=== PATIENT | male | born 1960 | race Caucasian/White ===

== ENCOUNTER 2018-04-06 10:51 | Outpatient (REF) | payer MEDICAID, SELFPAY ==
[2018-04-06 19:16] LABS: HCT 41.6 % (40.0-50.0); HGB 13.4 g/dL (13.5-17.5); Mean Corp. HGB Concentration 32.2 g/dL (32.0-36.0); Mean Corpuscular Hemoglobin 27.4 pg (27.0-33.0); Mean Corpuscular Volume 85.1 fL (80-95); Mean Platelet Volume 12.6 fL (8.0-11.0); Platelet Count 149 x1000/uL (130-400); RBC 4.89 m/cumm (4.50-6.00); RBC Distribution Width 15.9 % (11.8-14.1); White Blood Cell Count 6.99 k/cumm (4.4-10.8)
[2018-04-06 19:25] LABS: Iron 24 ug/dL (50-175); Total Iron Binding Capacity 395 ug/dL (250-450); Transferrin Sat 6 % (20-55)
[2018-04-06 19:49] LABS: ALT 33 U/L (12-78); AST 30 U/L (15-37); Albumin 3.6 g/dL (3.4-5.0); Alkaline Phosphatase 124 U/L (46-116); Anion Gap 11.3 mmol/L (3-11); BUN 14 mg/dL (7-18); Bilirubin, Total 0.4 mg/dL (0.2-1.0); CO2 26.7 mmol/L (21.0-32.0); CREATININE 0.98 mg/dL (0.70-1.30); Calcium 8.8 mg/dL (8.5-10.1); Chloride 101 mmol/L (98-107); Ferritin 17 ng/mL (8-388); Glucose 107 mg/dL (70-100); Potassium 3.5 mmol/L (3.5-5.1); Sodium 139 mmol/L (136-145); TSH (W/Ref FT4) 2.16 uIU/mL (0.358-3.74); Total Protein 7.9 g/dL (6.4-8.2)
[2018-04-08 14:16] LABS: HCV RNA Detection Quantitative Undetected IU/mL (UNDECT)
[2018-04-09 11:32] LABS: ALT 26 U/L (7-55); ActiTest Grade A0-A1; ActiTest Interpretation no activity; ActiTest Score 0.19; Alpha-2-Macroglobulin 416 mg/dL (100 - 280); Apoliprotein A1 119 mg/dL (>=120); Bilirubin, Total 0.3 mg/dL (<=1.2); FibroTest Interpretation advanced fibrosis; FibroTest Score 0.65; FibroTest Stage F3; GGT 70 U/L (8 - 61); Haptoglobin 139 mg/dL (30 - 200)
== END 2018-04-06 11:11 ==
LOC: NCHCN 10:51
PROVIDERS: PCP Nurse Practitioner; Visit Provider Family Medicine
DX: B19.20 Unspecified viral hepatitis C without hepatic coma (principal); E83.119 Hemochromatosis, unspecified; K74.60 Unspecified cirrhosis of liver; R00.0 Tachycardia, unspecified
CPT/HCPCS: 80053; 82172; 82247; 82977; 83010; 83883; 84460; 85027; 82728; 83540; 83550; 84443; 87522

== ENCOUNTER 2018-04-13 00:26 | Outpatient (CLI) | payer MEDICAID, SELFPAY ==
--- NOTE | 2018-04-13 13:54 | DI.CTLCSR_ITS ---
SYMPTOMS/DIAGNOSIS: PERSONAL H/O NICOTINE DEPENDENCE, Z87.[address] FOR LUNG CANCER SCREENING: Comparison is made with June,. A low dose noncontrast exam was performed. The heart size is normal. Coronary artery calcifications and mild aortic calcifications are seen. No pleural or pericardial effusions are seen. Multiple large bullae are seen, greatest at the anterior left upper lobe and lingula. Large bullae are also seen in the anterior right upper lobe. On the previous scan, there was a large left apical bulla, which is no longer present. Correlation with the patient's history is recommended. There is now pleural thickening in the left upper lobe and an apparent left upper lobe mass versus scarring, measuring 5 cm AP x 3 cm cephalocaudad x 1.5 cm transverse. Scarring in the right upper lobe appears stable. No pulmonary nodules are seen. IMPRESSION: Interval decrease in size of previously noted large bulla in the left upper lobe. There is now apparent pleural thickening in the left upper lobe versus mass. A PET/CT could be considered for further evaluation. Lung-RAD Category: 4B- Suspicious Lung- RAD Management of Findings: Chest CT, PET/CT, and/or tissue sampling
== END 2018-04-13 00:46 ==
PROVIDERS: PCP Nurse Practitioner; Visit Provider Internal Medicine
DX: Z12.2 Encounter for screening for malignant neoplasm of respiratory organs (principal); Z87.891 Personal history of nicotine dependence; J43.8 Other emphysema; J92.9 Pleural plaque without asbestos
CPT/HCPCS: G0297

== ENCOUNTER 2018-06-26 01:42 | Outpatient (CLI) | payer MEDICAID, SELFPAY ==
--- NOTE | 2018-06-26 13:30 | DI.CT_ITS ---
SYMPTOMS/DIAGNOSIS: COPD, J44.9 CT SCAN OF THE CHEST: CT scan of the chest was performed without intravenous contrast material. Comparison is 04/13/18. There is atherosclerosis of the thoracic aorta, but no aneurysmal dilatation is seen. The heart size is within normal limits. No significant pericardial effusion is present. No significant thoracic adenopathy is seen on this noncontrast examination. No pleural effusion or pneumothorax is identified. The visualized thyroid gland is grossly unremarkable. Extensive bullous emphysematous changes are seen in the lungs. The scarring in the right lung apex is unchanged. The soft tissue thickening seen along the left lateral chest wall superiorly is present and is unchanged. No other pulmonary nodules are seen. No acute infiltrates are present. The tracheobronchial tree is unremarkable. Degenerative changes are seen in the spine. No aggressive osseous lesions are identified. IMPRESSION: 1. Stable pleural thickening versus soft tissue mass along the left upper lateral chest wall. 2. Severe emphysematous changes within the lungs with large bullae seen in the upper lobes.
== END 2018-06-26 02:02 ==
PROVIDERS: PCP Nurse Practitioner; Visit Provider Internal Medicine
DX: J44.9 Chronic obstructive pulmonary disease, unspecified (principal); J92.9 Pleural plaque without asbestos; J43.9 Emphysema, unspecified
CPT/HCPCS: 71250

== ENCOUNTER 2018-09-04 10:42 | Outpatient (REF) | payer MEDICAID, SELFPAY ==
[2018-09-04 13:15] LABS: HCT 42.8 % (40.0-50.0); HGB 14.6 g/dL (13.5-17.5); Mean Corp. HGB Concentration 34.1 g/dL (32.0-36.0); Mean Corpuscular Hemoglobin 29.4 pg (27.0-33.0); Mean Corpuscular Volume 86.3 fL (80-95); Mean Platelet Volume 11.9 fL (8.0-11.0); Platelet Count 178 x1000/uL (130-400); RBC 4.96 m/cumm (4.50-6.00); RBC Distribution Width 14.1 % (11.8-14.1); White Blood Cell Count 11.35 k/cumm (4.4-10.8)
[2018-09-04 14:20] LABS: Iron 72 ug/dL (50-175); Total Iron Binding Capacity 384 ug/dL (250-450); Transferrin Sat 19 % (20-55)
[2018-09-04 14:40] LABS: Cholesterol 225 mg/dL (50-200); Ferritin 32 ng/mL (8-388); HDL Cholesterol 32 mg/dL (40-60); LDL CHOLESTEROL 139 mg/dL (<100); Triglyceride 274 mg/dL (30-150)
== END 2018-09-04 11:02 ==
LOC: NCHCN 10:42
PROVIDERS: PCP Nurse Practitioner; Visit Provider Family Medicine
DX: E83.119 Hemochromatosis, unspecified (principal); K74.60 Unspecified cirrhosis of liver; Z13.220 Encounter for screening for lipoid disorders
CPT/HCPCS: 80061; 83721; 85027; 82728; 83540; 83550

== ENCOUNTER 2018-12-30 00:47 | Outpatient (CLI) | payer MEDICAID, SELFPAY ==
--- NOTE | 2018-12-30 11:08 | DI.CT_ITS ---
SYMPTOMS/DIAGNOSIS: ABNORMAL FINDINGS ON DIAGNOSTIC IMAGING OF OTHER SPECIFIED BODY STRUCTURES, R93.[address]: CT examination of the chest was performed without contrast administration. Images obtained through the upper abdomen show hepatomegaly with a nodular hepatic contour consistent with cirrhosis. Previous chest CT of 06/26/2018 showed findings of stable pleural thickening in the left upper lateral chest wall. On today's examination, the pleural thickening is more prominent, particularly on the medial aspect of the lung apex in comparison with the previous examination. No dominant rounded mass is identified. There is mild apical pleural thickening at the right lung apex, unchanged from the previous examination. Severe bullous emphysema again noted bilaterally. No intrapulmonary nodules seen. No pleural effusion. No mediastinal or hilar adenopathy. CONCLUSION: 1. Interval increase in prominence of left apical pleural thickening/mass; the pattern of involvement would raise the possibility of mesothelioma. Please correlate clinically. 2. Severe bullous emphysema again noted. 3. Hepatomegaly and nodular hepatic contour consistent with cirrhosis.
== END 2018-12-30 01:07 ==
PROVIDERS: PCP Nurse Practitioner; Visit Provider Internal Medicine
DX: R93.89 Abnormal findings on diagnostic imaging of other specified body structures (principal); R91.8 Other nonspecific abnormal finding of lung field; R16.0 Hepatomegaly, not elsewhere classified; K74.60 Unspecified cirrhosis of liver; J43.9 Emphysema, unspecified
CPT/HCPCS: 71250

== ENCOUNTER 2019-05-10 01:09 | Outpatient (CLI) | payer SELFPAY ==
--- NOTE | 2019-05-10 09:36 | DI.CT_ITS ---
EXAM: CT CHEST WO CLINICAL HISTORY: COPD, J44.9, F/U ON LT APICAL PROGRESSIVE PULMONARY FIBROSIS TECHNIQUE: Noncontrast COMPARISON: CHEST 2 VIEWS PA,LAT from 07/04/2016 CT CHEST WO from 12/30/2018 FINDINGS: Changes of centrilobular and paraseptal emphysema with multiple large bullae are again noted. There is an increased area of parenchymal scarring anteriorly at the right. There is no definite underlyin g mass. There is scarring and pleural thickening at the left apex, which appears stable. No new inf iltrates are seen. No pulmonary nodules, pleural or pericardial effusions are seen. The liver again has an enlarged cirrhotic appearance. The spleen is not fully included on the exam and appears mild ly enlarged. IMPRESSION: Mild interval increase in area of scarring seen anteriorly in the right upper lobe. The remainder of the findings appear unchanged.
== END 2019-05-10 01:29 ==
PROVIDERS: PCP Nurse Practitioner; Visit Provider Internal Medicine
DX: J44.9 Chronic obstructive pulmonary disease, unspecified (principal); J84.10 Pulmonary fibrosis, unspecified; J98.4 Other disorders of lung
CPT/HCPCS: 71250

== ENCOUNTER 2019-06-02 09:53 | Outpatient (REF) | payer SELFPAY ==
[2019-06-02 11:44] LABS: HCT 40.6 % (40.0-50.0); HGB 13.8 g/dL (13.5-17.5); Mean Corpuscular Hemoglobin 31.2 pg (27.0-33.0); Mean Corpuscular Volume 91.9 fL (80-95); Mean Platelet Volume 11.6 fL (8.0-11.0); Platelet Count 138 x1000/uL (130-400); RBC 4.42 m/cumm (4.50-6.00); White Blood Cell Count 6.33 k/cumm (4.4-10.8)
[2019-06-02 11:53] LABS: Iron 64 ug/dL (65-175); Total Iron Binding Capacity 285 ug/dL (250-450); Transferrin Sat 22 % (20-55)
[2019-06-02 12:10] LABS: ALT 38 U/L (16-63); AST 31 U/L (15-37); Albumin 3.6 g/dL (3.4-5.0); Alkaline Phosphatase 137 U/L (46-116); BUN 20 mg/dL (7-18); Bilirubin, Total 0.3 mg/dL (0.2-1.0); CREATININE 0.96 mg/dL (0.70-1.30); Calcium 8.8 mg/dL (8.5-10.1); Chloride 104 mmol/L (98-107); Ferritin 41 ng/mL (26-388); Glucose 135 mg/dL (74-106); Sodium 142 mmol/L (136-145); Total Protein 7.2 g/dL (6.4-8.2)
[2019-06-02 12:37] LABS: Uric Acid 6.4 mg/dL (3.5-7.2)
== END 2019-06-02 10:13 ==
LOC: NCHCN 09:53
PROVIDERS: PCP Nurse Practitioner; Visit Provider Family Medicine
DX: E83.119 Hemochromatosis, unspecified (principal); K74.60 Unspecified cirrhosis of liver; M10.9 Gout, unspecified
CPT/HCPCS: 80053; 85027; 82728; 83540; 83550; 84550

== ENCOUNTER 2019-11-30 10:04 | Outpatient (REF) | payer SELFPAY ==
[2019-11-30 11:44] LABS: HCT 42.2 % (40.0-50.0); Mean Corp. HGB Concentration 35.5 g/dL (32.0-36.0); Mean Corpuscular Hemoglobin 31.9 pg (27.0-33.0); Mean Corpuscular Volume 89.8 fL (80-95); Mean Platelet Volume 11.3 fL (8.0-11.0); Platelet Count 154 x1000/uL (130-400); RBC Distribution Width 13.2 % (11.8-14.1); White Blood Cell Count 7.86 k/cumm (4.4-10.8)
[2019-11-30 11:54] LABS: INR 1.1 (0.9-1.1); Prothrombin Time 10.9 sec (9.3-11.0)
[2019-11-30 11:57] LABS: ALT 156 U/L (16-63); AST 129 U/L (15-37); Albumin 4.1 g/dL (3.4-5.0); Alkaline Phosphatase 111 U/L (46-116); Anion Gap 14.2 mmol/L (3-11); BUN 13 mg/dL (7-18); Bilirubin, Total 0.8 mg/dL (0.2-1.0); CO2 23.8 mmol/L (21.0-32.0); CREATININE 1.11 mg/dL (0.70-1.30); Calcium 9.7 mg/dL (8.5-10.1); Chloride 97 mmol/L (98-107); Glucose 119 mg/dL (74-106); Potassium 3.6 mmol/L (3.5-5.1); Sodium 135 mmol/L (136-145); Total Protein 8.2 g/dL (6.4-8.2)
== END 2019-11-30 10:24 ==
LOC: NCHCN 10:04
PROVIDERS: PCP Nurse Practitioner; Visit Provider Family Medicine
DX: K74.60 Unspecified cirrhosis of liver (principal)
CPT/HCPCS: 80053; 85027; 85610

== ENCOUNTER → 2019-12-06 01:14 | Outpatient (CLI) | payer MEDICARE, SELFPAY ==
--- NOTE | 2019-12-06 | DI.US_ITS ---
EXAM: US ABDOMEN CLINICAL HISTORY: CIRRHOSIS OF LIVER,K74.60, SCREENING FOR HCC TECHNIQUE: Ultrasound performed using standard protocol. COMPARISON: US ABDOMEN ULTRASOUND (P) from 04/07/2017 FINDINGS: The liver is enlarged measuring 18.2 cm in length. The echotexture is coarse. There is also increa sed echogenicity consistent with fatty infiltration. No focal liver lesions or biliary dilatation is seen. The gallbladder is unremarkable, without evidence of stones or wall thickening. There is no ascites. The spleen is mildly enlarged at 13.6 cm. The kidneys are unremarkable. The aorta is norm al in diameter. IMPRESSION: Enlarged fatty liver with coarse echotexture. No evidence of mass. DATA REPOSITORY:
== END ==
PROVIDERS: PCP Family Medicine; Visit Provider Family Medicine
DX: K74.69 Other cirrhosis of liver (principal); K76.0 Fatty (change of) liver, not elsewhere classified; R16.2 Hepatomegaly with splenomegaly, not elsewhere classified
CPT/HCPCS: 71250; 76700

== ENCOUNTER 2019-12-06 01:22 | Outpatient (CLI) | payer SELFPAY ==
--- NOTE | 2019-12-06 07:51 | DI.CT_ITS ---
EXAM: CT CHEST WO CLINICAL HISTORY: CHRONIC OBSTRUCTIVE LUNG DISEASE,J44.9, F/U RT APICAL DENSITY TECHNIQUE: Imaging Protocol: Axial computed tomography images with coronal and sagittal reformatted images were created and reviewed CONTRAST MATERIAL: Intravenous: Omnipaque 350 Contrast volume:structured data in ml. COMPARISON: CT CT CHEST W/ HRCT from 07/11/[address] CHEST LUNG CANCER SCREEN from 04/13/[address] CHEST WO from 05/10/2019 FINDINGS: Tracheobronchial tree: Patent where visualized. Mediastinum and Leanna: No dominant adenopathy or fluid collection. Pulmonary parenchyma: No consolidation or dominant measurable mass. Stable emphysematous changes and large bulla. Biapical scarring. The scarring in the right upper lobe appears less prominent when co mpared with the previous exam. No mass is visible. Left apical scarring appears stable.. Pleura: No effusion or pneumothorax. Heart: The heart is not dilated. Dense coronary artery calcifications are seen. Aorta: Thoracic aorta non-dilated. Mild calcification. Upper abdomen: Enlarged fatty liver. Lymph nodes: Within normal limits. Bones: Degenerative changes in the spine.. IMPRESSION: Interval decrease in right upper lobe scarring when compared with the previous exam. No mass is visi ble. Severe emphysematous changes with large bulla. RADIATION DOSE DELIVERED: 510.31mGy.cm Total DLP DATA REPOSITORY: All CT scans at this facility are submitted to the National Radiology Data Registry (NRDR) Dose Index Registry (DIR) with the [employer] ([employer]). RADIATION OPTIMIZATION: All CT scans at this facility use at least one of these dose optimization te chniques: automated exposure control; mA and/or kV adjustment per patient size (includes targeted exa ms where dose is matched to clinical indication); or iterative reconstruction.
== END 2019-12-06 01:42 ==
PROVIDERS: PCP Family Medicine; Visit Provider Internal Medicine
DX: J44.9 Chronic obstructive pulmonary disease, unspecified (principal); K76.0 Fatty (change of) liver, not elsewhere classified; J43.8 Other emphysema
CPT/HCPCS: 71250

== ENCOUNTER → 2020-06-02 01:40 | Outpatient (CLI) | payer MEDICARE, SELFPAY ==
--- NOTE | 2020-06-02 | DI.US_ITS ---
EXAM: US ABDOMEN CLINICAL HISTORY: HCC SCREENING, CIRRHOSIS OF LIVER, K74.60 TECHNIQUE: Ultrasound abdomen performed using standard protocol. COMPARISON: US US ABDOMEN from 12/06/[address] CHEST WO from 12/06/2019 FINDINGS: LIVER: The liver is enlarged to 17.5 cm in length. There is diffuse increased echogenicity consisten t with fatty infiltration. The liver surface is nodular. No focal liver lesions are seen.. GALLBLADDER: No evidence of cholelithiasis. No evidence of wall thickening. No pericholecystic fluid identified. HACKETT'S SIGN: Negative. BILIARY SYSTEM: No intrahepatic or extrahepatic biliary ductal dilation. KIDNEYS: Kidneys are symmetric in size. No evidence of renal calculi. No evidence of hydronephrosis. No renal mass or cyst identified. PANCREAS: Normal where visualized. SPLEEN: Not enlarged. ABDOMINAL AORTA AND IVC: Visualized portions normal caliber. ASCITES: None seen. IMPRESSION: Enlarged nodular liver. No focal liver mass. Normal gallbladder. DATA REPOSITORY:
== END ==
PROVIDERS: PCP Family Medicine; Visit Provider Family Medicine
DX: K74.69 Other cirrhosis of liver (principal)
CPT/HCPCS: 76700

== ENCOUNTER 2021-04-15 16:16 | Emergency (ER) | payer OTHER, SELFPAY ==
[2021-04-15] VITALS (29 sets, daily range): BP systolic 101–138; BP diastolic 69–121; PULSE 80–110; RESP 1–28; TEMP 36.4; O2SAT 76–100
--- NOTE | 2021-04-15 16:15 | RT.EKG_ITS ---
APPROVED REPORT Exam: Resting ECG Reason for Exam: od Patient Location: E HR:106 bpm ECG Measurements Heart Rate 106 AXIS LA 151 P 87 QRSd 89 QRS 79 QT 320 T 53 QTc 426 Conclusion Sinus tachycardia...rate> 99. Sinus. No STEMI. I have reviewed and interpreted ECG and agree with software generated interpretation.
--- NOTE | 2021-04-15 16:15 | DI.RAD_ITS ---
Exam(s) XR CHEST 2V PA LATERAL EXAM: XR CHEST 2V PA LATERAL CLINICAL HISTORY: s/p found down, unresponsive, r/o acute disease. TECHNIQUE: 2D digital imaging was performed. COMPARISON: CR CHEST 2 VIEWS PA,LAT from 07/04/2016 FINDINGS: Heart size is normal. The mediastinum is not widened. Severe emphysematous bullous changes are again noted. However, there is now a fluid level within a l arge bulla in the lingular segment of the left lung, consistent with most probable infectious etiolog y superimposed upon severe emphysematous bullous disease. No free layering pleural fluid. IMPRESSION: Fluid level within large left lung bulla as described above. Most probably infectious. Recommend fo llow-up CT scan. DATA REPOSITORY: RADIATION DOSE DELIVERED:
[2021-04-15] MEDS: Normal Saline 1,000 ML 1000 ML IV (16:35)
[2021-04-15 16:36] LABS: Abs Immature Grans 0.77 10^3/uL (0.0-0.06); Absolute Basophil Count 0.12 10^3/uL (0.0-0.2); Absolute Eosinophil Count 0.32 10^3/uL (0.0-0.7); Basophils % 0.8; Eosinophils % 2.1; HCT 51.8 % (40.0-50.0); HGB 16.4 g/dL (13.5-17.5); Lymphocytes % 40.2; MCH 31.7 pg (27.0-33.0); MCHC 31.7 % (32.0-36.0); MCV 100.2 fL (80-95); MPV 10.5 fL (8.0-11.0); Monocytes % 2.9; Nucleated RBC 0 %; Platelet Count 285 10^3/uL (130-400); RBC 5.17 10^6/uL (4.36-5.78); RDW 12.7 % (11.8-14.1); RDW-SD 47.6 fL; WBC 15.39 10^3/uL (4.4-10.8)
[2021-04-15 16:39] LABS: Absolute Lymphocyte Count 6.19 10^3/uL (1.2-3.4); Absolute Monocyte Count 0.45 10^3/uL (0.1-0.8); Absolute Neutrophil Count 7.54 10^3/uL (1.2-6.7)
[2021-04-15] MEDS: LORazepam 2 MG/ML VIAL 0.5 MG IVP (16:39)
--- NOTE | 2021-04-15 16:40 | ED.GENADUL_ITS ---
Discharge Plan Disposition Patient Disposition: AGAINST MEDICAL ADVICE Condition: Serious Discharge Details Clinical Impression: Overdose, Hyperglycemia, Hyperkalemia, Pneumonia, Transaminitis Primary Care Provider: Gerardo Ramos ED Provider: Su Boateng Home Meds and New Rx's Prescriptions: New levofloxacin 750 mg tablet 750 mg PO DAILY 5 Days Qty: 5 RF: 0 Discharge Instructions Instructions: Narcotic Safety (ED), Hyperkalemia (ED), Nondiabetic Hyperglycemia (ED), Opioid Safety (ED), Pneumonia (ED), Adult Overdose (ED) Additional Instructions: You are leaving the hospital AGAINST MEDICAL ADVICE. Your blood work showed evidence that your blood sugar is elevated and may be a sign of diabetes. Your chest x-ray also showed evidence of a possible pneumonia. It is recommended that you stay in the hospital for continued monitoring overnight to monitor your breathing after an overdose, to monitor your blood sugar and to give you intravenous antibiotics for your pneumonia. There is a risk of and disability due to leaving the hospital as a result potentially of incomplete treatment, missed diagnoses or worsening condition, etc. A prescription for antibiotics has been sent electronically to your pharmacy. Take this as directed until finished. You are also being sent home with Narcan to to use in case of opiate overdose. Call your primary care doctor tomorrow to schedule follow-up appointment for reevaluation and for recheck of your blood sugar to determine if you officially have diabetes or any diabetes medication. Return immediately to the emergency department if you develop any worsening or new concerning symptoms. Discharge Data Discharge Date/Time-TO BE ENTERED AT DEPARTURE: 04/15/21 19:02 Discharge Physician: Su Boateng Medical Decision Making 60-year-old male with history of COPD, hypertension, history of opiate abuse with previous history of overdose presents from home for potential opiate overdose, found unresponsive now alert after 5 rounds of Narcan on scene. Heart rate 110s, blood pressure within normal limits. Oxygen saturation 98% on nasal cannula. Patient is drowsy but awakens to voice and is able to answer questions. He states he is not sure what he did today but his girlfriend states he has a history of opiate abuse and stated this episode is similar to that. EKG notes a rate of 106, sinus, no STEMI, nondiagnostic. No evidence of trauma or focal deficits on exam. Patient is shivering and restless throughout evaluation but appears nontoxic. Will give a dose of benzodiazepines, fluids, obtain screening labs, CT head, chest x-ray and continue to monitor. Labs and imaging reviewed. White blood cell count 15. Hemoglobin 16. Potassium 5.3. Bicarb 23. Anion gap 13.5. BUN 19. Creatinine 1.8. Glucose 354. AST 138. ALT 127. Alk phos 129. Troponin negative. Negative alcohol, acetaminophen and salicylates. After return from radiology patient is much more awake and alert, oriented x3. Appears much more comfortable and relaxed. CXR notes: IMPRESSION: Bullous disease at the lung apices. Large 7.8 cm x 8.8 cm x 11.0 cm pulmonary bulla in the left mid lung zone abutting the mediastinum with an air-fluid level suspicious for a superimposed pulmonary infection. Clinical correlation is recommended. CT head and cervical spine notes: IMPRESSION: No acute intracranial findings on this noninfused CT scan of the brain. No evidence of acute cervical spine fracture, malalignment, nor acute compromise of the cervical spinal canal. 7 units of insulin ordered for hyperkalemia and hyperglycemia. Albuterol and sodium bicarbonate ordered for hyperkalemia. We will continue IV fluid hydration. Will start antibiotics for potential aspiration pneumonia, IV Levaquin and Flagyl ordered. Case discussed with hospitalist who came to evaluate patient. Patient is refusing to stay. Despite our efforts, the patient has decided to leave against medical advice. He has a normal mental status and full decisional capacity. The patient understands his condition and the risks of leaving AMA, including BUT NOT LIMITED TO permanent disability, , etc., and has had an opportunity to ask questions about his medical condition. The patient has been informed that he may return for care at any time, and has been referred to his local medical physician for follow up MARIA T. He was given a dose of p.o. Levaquin here and prescription sent electronically to his pharmacy. He was placed on care management list to help arrange for a follow-up appointment with his PCP tomorrow for reevaluation, recheck of his glucose to determine if he needs diabetic medication. Usual and customary return precautions given prior to leaving against medical advice. Medical Records Medical records reviewed: Yes I reviewed the patient's medical records. Imaging Data Radiologic Study: Radiologist's impression: XR Chest Exam date and time: 04/15/2021 4:32 PM Age: 60 years old Clinical indication: Other: S/P found down, unresponsive. R/O acute disease TECHNIQUE: Imaging protocol: XR of the chest. Views: 2 views. COMPARISON: CT CHEST WO 12/06/2019 7:49 AM FINDINGS: Lungs: There is bullous change at the pulmonary apices. There is a large 7.8 cm x 8.8 cm x 11.0 cm pulmonary bulla projecting in the medial left hemithorax with an air-fluid level, partially obscuring the heart. No pulmonary consolidation is seen. Pleural spaces: No pleural effusion or pneumothorax is demonstrated. Apical pleural thickening is noted bilaterally, more prominent on the right. Heart/Mediastinum: The heart size is normal. Bones/joints: The visualized bony structures appear grossly intact, as seen. IMPRESSION: Bullous disease at the lung apices. Large 7.8 cm x 8.8 cm x 11.0 cm pulmonary bulla in the left mid lung zone abutting the mediastinum with an air-fluid level suspicious for a superimposed pulmonary infection. Clinical correlation is recommended. CT HEAD CERVICAL SPINE WO CLINICAL HISTORY: unresponsive, s/p found down. TECHNIQUE: Imaging Protocol: Axial computed tomography images with coronal and sagittal reformatted images were created and reviewed COMPARISON: No exams were available for comparison FINDINGS: BRAIN: There are no skull fractures nor fluid in the visualized paranasal sinuses. Mild mucosal thickening is noted in left maxillary sinus. Chronic nasal bone fracture and deviation of the nasal septum noted. There is no evidence of intracranial hemorrhage, mass effect, or shift of midline structures. There are no extra-axial fluid collections. The ventricles are not enlarged or shifted and there is no blood within the ventricular system nor within the basal cisterns. CERVICAL SPINE: There is no evidence of fracture nor listhesis. No significant prevertebral soft tissue swelling. Multilevel degenerative changes in the facet joints. There is also fusion of the C3-4 left facet joints There is no significant facet joint malalignment. No significant osseous lesions evident. IMPRESSION: No acute intracranial findings on this noninfused CT scan of the brain. No evidence of acute cervical spine fracture, malalignment, nor acute compromise of the cervical spinal canal. Lab Data Lab results reviewed: Yes I reviewed the patient's lab results. Labs: 04/15/21 18:15 Blood Blood Culture - Pending 04/15/21 18:15 Blood Blood Culture - Pending Laboratory Tests Range/Units 04/15/21 04/15/21 04/15/21 16:20 16:20 16:20 WBC (4.4-10.8) 10^3/uL 15.39 H RBC (4.36-5.78) 10^6/uL 5.17 Hgb (13.5-17.5) g/dL 16.4 Hct (40.0-50.0) % 51.8 H MCV (80-95) fL 100.2 H MCH (27.0-33.0) pg 31.7 MCHC (32.0-36.0) % 31.7 L RDW (11.8-14.1) % 12.7 Plt Count (130-400) 10^3/uL 285 MPV (8.0-11.0) fL 10.5 Immature Gran % 5.0 Neutrophils % 49.0 Lymphocytes % 40.2 Monocytes % 2.9 Eosinophils % 2.1 Basophils % 0.8 Nucleated RBC % % 0 Absolute Neutrophils (1.2-6.7) 10^3/uL 7.54 H Absolute Lymphocytes (1.2-3.4) 10^3/uL 6.19 H Absolute Monocytes (0.1-0.8) 10^3/uL 0.45 Absolute Eosinophils (0.0-0.7) 10^3/uL 0.32 Absolute Basophils (0.0-0.2) 10^3/uL 0.12 RBC Morphology Normal VBG pH (7.31-7.41) VBG pCO2 (41-51) mmHg VBG pO2 mmHg VBG HCO3 (23-28) mmol/L VBG Total CO2 (24-29) mmol/L VBG O2 Saturation % VBG Base Excess (-2-3) mmol/L Sodium (136-145) mmol/L 135 L Potassium (3.5-5.1) mmol/L 5.3 H Chloride (98-107) mmol/L 98 Carbon Dioxide (21.0-32.0) mmol/L 23.5 Anion Gap (3-11) mmol/L 13.5 H BUN (7-18) mg/dL 19 H Creatinine (0.70-1.30) mg/dL 1.8 H Estimated GFR/1.73 m2 (mL/min/1.73m2) 38.81 Glucose (74-106) mg/dL 354 H Calcium (8.5-10.1) mg/dL 9.2 Magnesium (1.8-2.4) mg/dL 2.4 Total Bilirubin (0.2-1.0) mg/dL 0.6 AST (15-37) U/L 138 H ALT (16-63) U/L 127 H Alkaline Phosphatase (46-116) U/L 129 H Troponin I (<0.06) ng/mL < 0.05 Total Protein (6.4-8.2) g/dL 8.9 H Albumin (3.4-5.0) g/dL 4.0 Salicylates (<2.8) mg/dL < 2.8 Acetaminophen (10-30) ug/mL < 2 Ethyl Alcohol (<10) mg/dL < 3.0 Range/Units 04/15/21 18:00 WBC (4.4-10.8) 10^3/uL RBC (4.36-5.78) 10^6/uL Hgb (13.5-17.5) g/dL Hct (40.0-50.0) % MCV (80-95) fL MCH (27.0-33.0) pg MCHC (32.0-36.0) % RDW (11.8-14.1) % Plt Count (130-400) 10^3/uL MPV (8.0-11.0) fL Immature Gran % Neutrophils % Lymphocytes % Monocytes % Eosinophils % Basophils % Nucleated RBC % % Absolute Neutrophils (1.2-6.7) 10^3/uL Absolute Lymphocytes (1.2-3.4) 10^3/uL Absolute Monocytes (0.1-0.8) 10^3/uL Absolute Eosinophils (0.0-0.7) 10^3/uL Absolute Basophils (0.0-0.2) 10^3/uL RBC Morphology VBG pH (7.31-7.41) 7.30 L VBG pCO2 (41-51) mmHg 58 H VBG pO2 mmHg 23 VBG HCO3 (23-28) mmol/L 28 VBG Total CO2 (24-29) mmol/L 26 VBG O2 Saturation % 39 VBG Base Excess (-2-3) mmol/L 2 Sodium (136-145) mmol/L Potassium (3.5-5.1) mmol/L Chloride (98-107) mmol/L Carbon Dioxide (21.0-32.0) mmol/L Anion Gap (3-11) mmol/L BUN (7-18) mg/dL Creatinine (0.70-1.30) mg/dL Estimated GFR/1.73 m2 (mL/min/1.73m2) Glucose (74-106) mg/dL Calcium (8.5-10.1) mg/dL Magnesium (1.8-2.4) mg/dL Total Bilirubin (0.2-1.0) mg/dL AST (15-37) U/L ALT (16-63) U/L Alkaline Phosphatase (46-116) U/L Troponin I (<0.06) ng/mL Total Protein (6.4-8.2) g/dL Albumin (3.4-5.0) g/dL Salicylates (<2.8) mg/dL Acetaminophen (10-30) ug/mL Ethyl Alcohol (<10) mg/dL ECG Data Attestation: I personally reviewed and interpreted this ECG (s) as follows: Interpretation: Rate of 106, sinus, no acute ST elevation or depression. TN 151. QRS 89. QTc 426 HPI General Mode of arrival: EMS . Date/Time Provider Initiated Documentation: 04/15/21 16:16 . Limitations to Documentation: altered mental status . Information obtained by: patient, family and EMS . HPI Narrative: Patient is a 60-year-old male with a history of COPD, former narcotic opiate abuse, tobacco smoker who presents from home as an unresponsive with CPR in progress per EMS. Upon EMS arrival, family had given him 5 Narcan and he was now alert and talking. Per patient's girlfriend Lizet, she states she heard a loud thump and checked on patient he was sitting on the toilet slumped over. She states she appeared to be breathing. She states his son and [id number] lowered him to the ground and he appeared to have slow breathing and they started CPR and gave him 5 intranasal Narcan and that he became responsive and talking. EMS placed an IV but no additional medications were given. Patient's daughter Lizet states that patient does have a history of snorting opiates and history of overdoses states this 1 was the worst . She states he was acting at his normal baseline prior to episode today. Denies any recent fever, falls or injury today. Related Data Home Medications Medication Instructions Recorded Confirmed levofloxacin 750 mg PO DAILY 5 Days #5 tab 04/15/21 Previous Rx's Medication Instructions Recorded levofloxacin 750 mg PO DAILY 5 Days #5 tab 04/15/21 Allergies Allergy/AdvReac Type Severity Reaction Status Date / Time Penicillins AdvReac Intermediate Nausea Unverified 06/07/19 07:29 codeine [Codeine] AdvReac Nausea Unverified 06/07/19 07:29 General Stated Complaint: OD/Poison BEVERLY: 2 Review of Systems All systems reviewed & are unremarkable except as noted in HPI and below Constitutional Constitutional: Reports as per HPI, Denies chills, Denies fever(s) and Reports other (feels freezing) Eyes Eyes: Denies blurry vision ENT Ears, Nose, Mouth, and Throat: Denies dizziness, Denies sore throat and Denies throat swelling Cardiovascular Cardiovascular: Denies chest pain and Denies dyspnea Respiratory Respiratory: Denies cough and Denies dyspnea Gastrointestinal Gastrointestinal: Denies abdominal pain, Denies diarrhea and Denies vomiting Genitourinary Genitourinary: Denies hematuria and Denies dysuria Musculoskeletal Musculoskeletal: Denies back pain and Denies numbness Integumentary/Breasts Skin/Breast: Denies lesions and Denies rash Neurologic Neurologic: Denies dizziness, Denies localized weakness and Denies numbness Allergic/Immunologic Allergic/Immunologic: Denies throat swelling [facility] Medical History (Updated 04/15/21 @ 18:44 by Su Boateng DO) Chronic low back pain Chronic obstructive lung disease Essential hypertension Surgical History (Updated 04/15/21 @ 16:47 by Su Boateng DO) Acromioplasty History of surgery on wrist Family History (System 06/07/19 @ 07:29 by Naty Miranda) Mother No problems noted. Father No problems noted. Social History (System 06/07/19 @ 07:29 by Naty Miranda) Smoking/Tobacco Use Status: Never Smoking risk assessment performed?: Yes Alcohol Intake: current Alcohol Intake frequency: a few times a week Alcohol type: beer Drug use: Daily Substance use type: marijuana Do you feel safe at home: Yes Do you feel safe in your relationship?: Yes Exam Const General: cooperative and no acute distress HENGA Head: normal to inspection Face and sinus: normal facial exam Eyes General: appearance normal, both eyes and all related structures Pupils: PERRL EOM: EOM intact bilaterally Neck Neck: normal visual inspection and No submandibular swelling Lymphatic: no lymphadenopathy noted Chest Chest: normal inspection of the chest and no tenderness Resp Effort & Inspection: normal respiratory effort and able to speak in complete sentences Auscultation: clear to auscultation bilaterally Cardio Rate: regular rate Rhythm: regular rhythm GI Inspection: normal to inspection Palpation: soft, not firm, not rigid and nontender Auscultation: normal bowel sounds Back/Spine/Pelvis Thoracic/Lumbar Spine: thoracic and lumbar spine normal to inspection Pelvis: no pain with anterior-posterior compression Skin General skin exam: no rashes or lesions noted Neuro General: patient alert, patient awake and patient oriented x3 Cognition: normal cognition Speech: speech normal Motor: muscle tone normal throughout Sensory Exam: no sensory deficits noted Extrem General: normal to inspection, full ROM, capillary refill normal, no calf tenderness bilaterally and no edema Psych Appearance: grossly normal Mental Status: mental status grossly normal Speech and Movement: speech and movement normal Affect: normal affect Course Vital Signs Vital signs: Vital Signs Temperature 97.5 F L 04/15/21 16:19 Pulse 110 H 04/15/21 16:19 Respiratory Rate 26 H 04/15/21 16:19 Blood Pressure 127/90 04/15/21 16:19 Pulse Oximetry 98 04/15/21 16:19 Temperature 97.5 F L 04/15/21 16:19 Temperature Source Tympanic 04/15/21 16:19 Pulse 110 H 04/15/21 16:19 Respiratory Rate 26 H 04/15/21 16:19 Blood Pressure 127/90 04/15/21 16:19 Blood Pressure Position Supine 04/15/21 16:19 Pulse Oximetry 98 04/15/21 16:19 Oxygen Delivery Method Room Air 04/15/21 16:19 Oxygen Flow Rate 0 04/15/21 16:19 Pain Level 0 04/15/21 16:19 Lab/Test Results Lab/Test Results: Laboratory Tests Range/Units 04/15/21 16:20 WBC (4.4-10.8) 10^3/uL 15.39 H RBC (4.36-5.78) 10^6/uL 5.17 Hgb (13.5-17.5) g/dL 16.4 Hct (40.0-50.0) % 51.8 H MCV (80-95) fL 100.2 H MCH (27.0-33.0) pg 31.7 MCHC (32.0-36.0) % 31.7 L RDW (11.8-14.1) % 12.7 Plt Count (130-400) 10^3/uL 285 MPV (8.0-11.0) fL 10.5
[2021-04-15 16:51] LABS: ALT 127 U/L (16-63); AST 138 U/L (15-37); Alkaline Phosphatase 129 U/L (46-116); Anion Gap 13.5 mmol/L (3-11); BUN 19 mg/dL (7-18); Bilirubin, Total 0.6 mg/dL (0.2-1.0); CO2 23.5 mmol/L (21.0-32.0); CREATININE 1.8 mg/dL (0.70-1.30); Calcium 9.2 mg/dL (8.5-10.1); Chloride 98 mmol/L (98-107); Estimated GFR 38.81 (mL/min/1.73m2); Glucose 354 mg/dL (74-106); Magnesium 2.4 mg/dL (1.8-2.4); Potassium 5.3 mmol/L (3.5-5.1); Sodium 135 mmol/L (136-145); Total Protein 8.9 g/dL (6.4-8.2)
[2021-04-15 16:56] LABS: Troponin I < 0.05 ng/mL (<0.06)
--- NOTE | 2021-04-15 16:59 | DI.CT_ITS ---
Exam(s) CT HEAD CERVICAL SPINE WO EXAM: CT HEAD CERVICAL SPINE WO CLINICAL HISTORY: unresponsive, s/p found down. TECHNIQUE: Imaging Protocol: Axial computed tomography images with coronal and sagittal reformatted images were created and reviewed COMPARISON: No exams were available for comparison FINDINGS: BRAIN: There are no skull fractures nor fluid in the visualized paranasal sinuses. Mild mucosal thickening is noted in left maxillary sinus. Chronic nasal bone fracture and deviation of the nasal septum note d. There is no evidence of intracranial hemorrhage, mass effect, or shift of midline structures. There are no extra-axial fluid collections. The ventricles are not enlarged or shifted and there is no blo od within the ventricular system nor within the basal cisterns. CERVICAL SPINE: There is no evidence of fracture nor listhesis. No significant prevertebral soft tissue swelling. Multilevel degenerative changes in the facet joints. There is also fusion of the C3-4 left facet catalina nts There is no significant facet joint malalignment. No significant osseous lesions evident. IMPRESSION: No acute intracranial findings on this noninfused CT scan of the brain. No evidence of acute cervical spine fracture, malalignment, nor acute compromise of the cervical spin al canal. RADIATION DOSE DELIVERED: 1,468.46mGy.cm Total DLP DATA REPOSITORY: All CT scans at this facility are submitted to the National Radiology Data Registry (NRDR) Dose Index Registry (DIR) with the [employer] ([employer]). RADIATION OPTIMIZATION: All CT scans at this facility use at least one of these dose optimization te chniques: automated exposure control; mA and/or kV adjustment per patient size (includes targeted exa ms where dose is matched to clinical indication); or iterative reconstruction.
[2021-04-15 17:03] LABS: Diff Comment Agrees w/ Instrument; RBC Morphology Normal
[2021-04-15 17:05] LABS: Salicylate < 2.8 mg/dL (<2.8)
[2021-04-15 17:06] LABS: ETHANOL BLOOD < 3.0 mg/dL (<10)
[2021-04-15 17:07] LABS: Acetaminophen < 2 ug/mL (10-30)
[2021-04-15] MEDS: Albuterol 2.5 MG/3 ML INH SOLN VIAL 5 MG UPD (17:26)
[2021-04-15] MEDS: Sodium Bicarbonate 50 MEQ/50 ML SYR IVP (17:26)
[2021-04-15] MEDS: Insulin REGULAR-Human 100 UNITS/ML UNIT 7 UNITS SC (17:27)
--- NOTE | 2021-04-15 17:42 | DI.VRAD_ITS ---
PROCEDURE INFORMATION: Exam: CT Head Without Contrast Exam date and time: 04/15/2021 4:32 PM Age: 60 years old Clinical indication: Injury or trauma; Unconscious; Injury details: Unresponsive, S/P found down TECHNIQUE: Imaging protocol: Computed tomography of the head without contrast. Radiation optimization: All CT scans at this facility use at least one of these dose optimization techniques: automated exposure control; mA and/or kV adjustment per patient size (includes targeted exams where dose is matched to clinical indication); or iterative reconstruction. COMPARISON: No relevant prior studies available. FINDINGS: Brain: No acute intracranial hemorrhage, mass-effect, midline shift, or extra-axial collection is seen. The craft white matter differentiation appears preserved. Cerebral ventricles: The ventricular system and basilar cisterns appear appropriate in size and configuration. Paranasal sinuses: The paranasal sinuses appear well aerated. No air-fluid levels are seen. Mastoid air cells: The mastoid air cells appear well-aerated. Auditory system: The middle ear cavities appear clear. Orbital cavity: The globes and intraorbital structures appear grossly intact. Vasculature: There is atherosclerotic calcification within the intracranial portion of the internal carotid arteries bilaterally. Bones/joints: There is gross deformity of the nasal bones and of the nasal septum. Old trauma is suspected. Clinical correlation is recommended. Soft tissues: No gross focal scalp hematoma is seen. Dental: The teeth are only partially visualized. There is poor dentition with multiple dental cavities and periapical lucencies in the mandible and maxilla suspicious for apical periodontitis and/or periapical abscesses. Follow-up with a dentist is recommended IMPRESSION: 1. No acute intracranial hemorrhage or depressed skull fracture. 2. Teeth only partially visualized. Poor dentition. Multiple dental cavities and periapical lucencies in the mandible and maxilla suspicious for apical periodontitis and/or periapical abscesses. Follow-up with a dentist is recommended. PROCEDURE INFORMATION: Exam: CT Cervical Spine Without Contrast Exam date and time: 04/15/2021 4:32 PM Age: 60 years old Clinical indication: Injury or trauma; Unconscious; Injury details: Unresponsive, S/P found down TECHNIQUE: Imaging protocol: Computed tomography images of the cervical spine without contrast. Radiation optimization: All CT scans at this facility use at least one of these dose optimization techniques: automated exposure control; mA and/or kV adjustment per patient size (includes targeted exams where dose is matched to clinical indication); or iterative reconstruction. COMPARISON: No relevant prior studies available. FINDINGS: Vertebrae: No acute cervical fracture or malalignment is seen. C2-C3: Disc height preserved. No significant cervical stenosis or foraminal narrowing. Moderate right-sided facet arthrosis. C3-C4: Disc height preserved. Osteophytic ridging on the left. Complete fusion of the left facet joint. No significant cervical stenosis. No significant right-sided foraminal narrowing. Severe left-sided foraminal narrowing. C4-C5: Disc height preserved. Severe right-sided facet arthrosis. Posterior osteophytic ridging with uncovertebral hypertrophy on the right. No significant cervical stenosis. Mild left and moderate-severe right-sided foraminal narrowing. C5-C6: Disc height preserved. Anterior osteophytes. Posterior osteophytic ridging with bilateral uncovertebral hypertrophy. Moderate bilateral facet arthrosis. Small broad-based posterior disc bulge abutting and deforming the thecal sac. Moderate bilateral foraminal narrowing. C6-C7: Disc height preserved. Moderate right-sided facet arthrosis. No significant cervical stenosis or right-sided foraminal narrowing. Mild left-sided foraminal narrowing. C7-T1: No significant cervical stenosis or foraminal narrowing. Soft tissues: Within the limits of the exam, no gross soft tissue fluid collection is seen in the neck. Thyroid: The thyroid gland appears normal in size. Vasculature: There is atherosclerotic calcification at the carotid bifurcations bilaterally. Lungs: There is extensive emphysema with bullous change at the lung apices. Spiculated opacity at the right lung apex with calcification probably represents scarring from a prior infection. IMPRESSION: No acute cervical fracture or malalignment is seen. Dictated and Authenticated by: Zan Valdivia MD. Ordering:NAVJOT Blue MD
--- NOTE | 2021-04-15 17:48 | DI.VRAD_ITS ---
PROCEDURE INFORMATION: Exam: XR Chest Exam date and time: 04/15/2021 4:32 PM Age: 60 years old Clinical indication: Other: S/P found down, unresponsive. R/O acute disease TECHNIQUE: Imaging protocol: XR of the chest. Views: 2 views. COMPARISON: CT CHEST WO 12/06/2019 7:49 AM FINDINGS: Lungs: There is bullous change at the pulmonary apices. There is a large 7.8 cm x 8.8 cm x 11.0 cm pulmonary bulla projecting in the medial left hemithorax with an air-fluid level, partially obscuring the heart. No pulmonary consolidation is seen. Pleural spaces: No pleural effusion or pneumothorax is demonstrated. Apical pleural thickening is noted bilaterally, more prominent on the right. Heart/Mediastinum: The heart size is normal. Bones/joints: The visualized bony structures appear grossly intact, as seen. IMPRESSION: Bullous disease at the lung apices. Large 7.8 cm x 8.8 cm x 11.0 cm pulmonary bulla in the left mid lung zone abutting the mediastinum with an air-fluid level suspicious for a superimposed pulmonary infection. Clinical correlation is recommended. Dictated and Authenticated by: Zan Valdivia MD. Ordering:NAVJOT Blue MD
[2021-04-15] MEDS: Normal Saline 1,000 ML 125 ML IV (17:59)
[2021-04-15 18:07] LABS: BE (Venous) 2 mmol/L (-2-3); HCO3 (Venous) 28 mmol/L (23-28); O2 Sat (Venous) 39 %; TCO2 (Venous) 26 mmol/L (24-29); pCO2 (Venous) 58 mmHg (41-51); pO2 (Venous) 23 mmHg
[2021-04-15] MEDS: levoFLOXacin 500 MG, levoFLOXacin 250 MG 750 MG PO (18:49)
--- NOTE | 2021-04-15 19:07 | NUR.NOTE ---
Referral faxed to [facility] Dr. Ramos to f/u 04/16/21 if at all possible for pneumonia, elevated blood sugar. Nursing Note:
== END 2021-04-15 19:02 | disposition left against medical advice (07) ==
PROVIDERS: Emergency Provider Physician Assistant; PCP Family Medicine
DX: T50.901A Poisoning by unspecified drugs, medicaments and biological substances, accidental (unintentional), initial encounter (principal); R73.9 Hyperglycemia, unspecified; E87.5 Hyperkalemia; J18.9 Pneumonia, unspecified organism; R74.01 Elevation of levels of liver transaminase levels; Z53.29 Procedure and treatment not carried out because of patient's decision for other reasons
CPT/HCPCS: 36415; 36416; 80053; 80307; 82805; 82962; 87040; 93005; 94640; 96361; 96372; 96374; 96375; 99285; 70450; 71046; 72125; 80320; 80329; 81003; 83605; 83735; 84484; 85025; 93010; 99284; J2060; J7613

== ENCOUNTER 2021-04-19 16:16 | Outpatient (REF) | payer OTHER, MEDICAID, SELFPAY ==
[2021-04-19 15:19] LABS: HCT 44.4 % (40.0-50.0); HGB 15.1 g/dL (13.5-17.5); MCV 94.1 fL (80-95); MPV 11.2 fL (8.0-11.0); RBC 4.72 10^6/uL (4.36-5.78); RDW 12.4 % (11.8-14.1); RDW-SD 43.1 fL; WBC 9.03 10^3/uL (4.4-10.8)
[2021-04-19 15:22] LABS: Platelet Count 175 10^3/uL (130-400)
[2021-04-19 15:56] LABS: Hemoglobin A1C 5.6 % (<5.7)
[2021-04-19 16:09] LABS: ALT 133 U/L (16-63); AST 49 U/L (15-37); Albumin 4.6 g/dL (3.4-5.0); Alkaline Phosphatase 102 U/L (46-116); Anion Gap 9.7 mmol/L (3-11); BUN 18 mg/dL (7-18); Bilirubin, Total 0.7 mg/dL (0.2-1.0); CO2 28.3 mmol/L (21.0-32.0); Calcium 9.7 mg/dL (8.5-10.1); Chloride 101 mmol/L (98-107); Ferritin 214 ng/mL (26-388); Glucose 107 mg/dL (74-106); Potassium 3.8 mmol/L (3.5-5.1); Sodium 139 mmol/L (136-145); Total Protein 8.8 g/dL (6.4-8.2)
[2021-04-19 16:36] LABS: Iron 98 ug/dL (65-175); Total Iron Binding Capacity 317 ug/dL (250-450); Transferrin Sat 31 % (20-55)
== END 2021-04-19 16:17 | disposition home or self-care (01) ==
LOC: LBN 16:16
PROVIDERS: PCP Family Medicine; Visit Provider Family Medicine
DX: R73.9 Hyperglycemia, unspecified; I10 Essential (primary) hypertension; K74.60 Unspecified cirrhosis of liver; M10.9 Gout, unspecified; E83.119 Hemochromatosis, unspecified
CPT/HCPCS: 80053; 85027; 82728; 83036; 83540; 83550

== ENCOUNTER 2021-07-02 01:43 | Outpatient (CLI) | payer OTHER, MEDICAID, SELFPAY ==
--- NOTE | 2021-07-02 07:30 | DI.US_ITS ---
Exam(s) US ABDOMEN EXAM: US ABDOMEN CLINICAL HISTORY: CIRRHOSIS OF LIVER, K74.60, HCC SCREEN TECHNIQUE: Ultrasound abdomen performed using standard protocol. COMPARISON: US US ABDOMEN from 06/02/2020 FINDINGS: LIVER: Mild surface nodularity. Coarsened echotexture. Within normal limits in size, 14.8 cm. Norm al flow in the portal vein.. No focal liver lesions are seen.. GALLBLADDER: No evidence of cholelithiasis. Gallbladder somewhat contracted. Minimal wall thickenin g. No pericholecystic fluid identified. HACKETT'S SIGN: Negative. BILIARY SYSTEM: No intrahepatic or extrahepatic biliary ductal dilation. KIDNEYS: Kidneys are symmetric in size. No evidence of renal calculi. No evidence of hydronephrosis. No renal mass or cyst identified. PANCREAS: Normal where visualized. SPLEEN: Borderline splenomegaly, 13 cm in length. ABDOMINAL AORTA AND IVC: Visualized portions normal caliber. ASCITES: None seen. IMPRESSION: Findings consistent with mild cirrhosis. No mass identified. DATA REPOSITORY:
--- NOTE | 2021-07-02 08:00 | DI.CTLCSR_ITS ---
Exam(s) CT CHEST LUNG CANCER SCREEN EXAM: CT CHEST LUNG CANCER SCREEN CLINICAL HISTORY: EX-SMOKER FOR MORE THAN 1 YEAR, Z87.891, STABLE LUNG SCARRING ON PRIOR CTS TECHNIQUE: Imaging Protocol: Axial computed tomography images with coronal and sagittal reformatted images were created and reviewed COMPARISON: CT CT CHEST WO from 12/30/[address] CHEST WO from 12/06/2019 FINDINGS: Tracheobronchial tree: Patent where visualized. Mediastinum and Leanna: No dominant adenopathy or fluid collection. Pulmonary parenchyma: No consolidation or dominant measurable mass. Stable biapical pleural thickeni ng with calcification. Emphysematous changes and bullous changes greatest at the apices. No infiltr ates. Minimal honeycombing at the bases posteriorly. Lung Nodules: Stable tiny nodule periphery right middle. Pleura: No effusion or pneumothorax. Heart: The heart is not dilated. Severe coronary artery calcifications are seen. Aorta: Thoracic aorta non-dilated.Mild calcification. Upper abdomen: Mildly nodular liver contour. . Bones: Degenerative changes. Soft Tissues: Unremarkable. IMPRESSION: Stable tiny right middle lobe nodule. Stable biapical pleural scarring. Lung RADS Cat 2 - Benign Appearance / Behavior: Nodules with a very low likelihood of becoming a clin ically active cancer due to size or lack of growth Lung-RADS 1.0 CATEGORIES: Category 0 - Prior chest CT exam(s) being located for comparison. Category 1 - Annual screening in 12 months. No nodules or definitely benign nodules. Category 2 - Annual screening in 12 months. Benign appearance. Nodules with low likelihood of becomin g active cancer. Category 3 - 6-month follow-up. Probably benign. Short-term follow-up suggested. Nodules with low lik elihood of becoming active cancer. Category 4A - 3-month follow-up and CT/PET if >8 mm in size. Suspicious finding. Findings which requi re additional testing. Category 4B - Findings which require additional testing and tissue sampling. Category 4X - Category 3 or 4 nodules with additional features or imaging findings that increases the suspicion of malignancy. Modifier S- Potentially clinically significant findings (non lung cancer) RADIATION DOSE DELIVERED: 80.06mGy.cm Total DLP 1.84mGy CTDIvol DATA REPOSITORY: All CT scans at this facility are submitted to the National Radiology Data Registry (NRDR) Dose Index Registry (DIR) with the [employer] (A[employer]). RADIATION OPTIMIZATION: All CT scans at this facility use at least one of these dose optimization te chniques: automated exposure control; mA and/or kV adjustment per patient size (includes targeted exa ms where dose is matched to clinical indication); or iterative reconstruction.
== END 2021-07-02 02:03 ==
PROVIDERS: PCP Family Medicine; Visit Provider Family Medicine
DX: Z87.891 Personal history of nicotine dependence (principal); Z12.2 Encounter for screening for malignant neoplasm of respiratory organs; R91.1 Solitary pulmonary nodule; R91.8 Other nonspecific abnormal finding of lung field
CPT/HCPCS: 71271; 76700

== ENCOUNTER 2021-12-17 18:29 | Outpatient (REF) | payer OTHER, SELFPAY ==
[2021-12-17 14:35] LABS: HCT 45.2 % (40.0-50.0); HGB 15.4 g/dL (13.5-17.5); MCH 32.6 pg (27.0-33.0); MCHC 34.1 % (32.0-36.0); MCV 96 fL (80-95); MPV 11.7 fL (8.0-11.0); Platelet Count 175 10^3/uL (130-400); RBC 4.73 10^6/uL (4.36-5.78); RDW 12.7 % (11.8-14.1); RDW-SD 44.7 fL; WBC 6.75 10^3/uL (4.4-10.8)
[2021-12-17 14:49] LABS: Iron 216 ug/dL (65-175); Total Iron Binding Capacity 291 ug/dL (250-450); Transferrin Sat 74 % (20-55)
[2021-12-17 15:09] LABS: ALT 37 U/L (16-63); AST 32 U/L (15-37); Albumin 4.3 g/dL (3.4-5.0); Alkaline Phosphatase 95 U/L (46-116); Anion Gap 9.7 mmol/L (3-11); BUN 18 mg/dL (7-18); CO2 25.3 mmol/L (21.0-32.0); CREATININE 0.9 mg/dL (0.70-1.30); Calcium 9.1 mg/dL (8.5-10.1); Chloride 101 mmol/L (98-107); Ferritin 150 ng/mL (26-388); Glucose 95 mg/dL (74-106); Sodium 136 mmol/L (136-145); Total Protein 8.1 g/dL (6.4-8.2)
[2021-12-17 15:41] LABS: Prothrombin Time 10.5 sec (9.3-11.0)
== END 2021-12-17 18:30 | disposition home or self-care (01) ==
LOC: NCHCN 18:29
PROVIDERS: PCP Family Medicine; Visit Provider Family Medicine
DX: E83.119 Hemochromatosis, unspecified (principal); K74.60 Unspecified cirrhosis of liver
CPT/HCPCS: 80053; 85027; 82728; 83540; 83550; 85610

== ENCOUNTER 2022-01-15 02:45 | Outpatient (CLI) | payer OTHER, SELFPAY ==
--- NOTE | 2022-01-15 07:45 | DI.US_ITS ---
Exam(s) US ABDOMEN LIMITED EXAM: US ABDOMEN LIMITED CLINICAL HISTORY: CIRRHOSIS OF LIVER, K74.60, HCC SCREEN TECHNIQUE: Ultrasound abdomen performed using standard protocol. COMPARISON: US US ABDOMEN from 07/02/2021 FINDINGS: PANCREAS: Normal where visualized. LIVER: Liver has a coarsened and echogenic appearance. There is a nodular contour of the liver. Hep atopedal flow in the Portal Vein. The liver measures in 15.6 cm length. GALLBLADDER: No evidence of cholelithiasis. No evidence of wall thickening. No pericholecystic fluid identified. BILIARY SYSTEM: Common bile duct measures < 7 mm. No intrahepatic biliary ductal dilation. HACKETT'S SIGN: Negative. RIGHT KIDNEY: Kidney is normal in size. No evidence of renal calculi. No evidence of hydronephrosis. No renal mass or cyst identified. ASCITES: None seen. ABDOMINAL AORTA AND IVC: Visualized portions normal caliber. IMPRESSION: Findings consistent with hepatic cirrhosis. No hepatic mass is identified sonographically. DATA REPOSITORY:
== END 2022-01-15 03:05 ==
LOC: DI 02:45
PROVIDERS: PCP Family Medicine; Visit Provider Family Medicine
DX: Z12.89 Encounter for screening for malignant neoplasm of other sites (principal); K74.60 Unspecified cirrhosis of liver
CPT/HCPCS: 76705

== ENCOUNTER 2022-07-09 16:43 | Outpatient (REF) | payer OTHER, SELFPAY ==
[2022-07-09 16:43] LABS: HGB 15.4 g/dL (13.5-17.5); MCH 31.6 pg (27.0-33.0); MCHC 34.2 % (32.0-36.0); MCV 92 fL (80-95); MPV 11.7 fL (8.0-11.0); Platelet Count 166 10^3/uL (130-400); RBC 4.87 10^6/uL (4.36-5.78); RDW 12.6 % (11.8-14.1); RDW-SD 43.1 fL; WBC 7.07 10^3/uL (4.4-10.8)
[2022-07-09 16:52] LABS: Iron 127 ug/dL (65-175); Total Iron Binding Capacity 256 ug/dL (250-450); Transferrin Sat 50 % (20-55)
[2022-07-09 17:17] LABS: ALT 38 U/L (16-63); AST 31 U/L (15-37); Albumin 4.1 g/dL (3.4-5.0); Alkaline Phosphatase 149 U/L (46-116); BUN 13 mg/dL (7-18); Bilirubin, Total 0.8 mg/dL (0.2-1.0); Calcium 9.1 mg/dL (8.5-10.1); Calculated LDL 118 mg/dL (<100); Chloride 101 mmol/L (98-107); Cholesterol 195 mg/dL (<200); Estimated GFR 86.16 (mL/min/1.73m2); Ferritin 185 ng/mL (26-388); Glucose 184 mg/dL (74-106); HDL Cholesterol 36 mg/dL (40-60); Potassium 4.1 mmol/L (3.5-5.1); Sodium 136 mmol/L (136-145); Total Protein 7.8 g/dL (6.4-8.2); Triglyceride 205 mg/dL (<150)
== END 2022-07-09 16:44 | disposition home or self-care (01) ==
LOC: NCHCN 16:43
PROVIDERS: PCP Family Medicine; Visit Provider Family Medicine
DX: K74.60 Unspecified cirrhosis of liver (principal); I10 Essential (primary) hypertension; R79.89 Other specified abnormal findings of blood chemistry
CPT/HCPCS: 80053; 80061; 85027; 82728; 83540; 83550; 85610

== ENCOUNTER 2022-07-11 03:47 | Outpatient (RCR) | payer OTHER, SELFPAY | END 2022-07-23 23:59 | disposition home or self-care (01) | LOC: INF 03:47 | PROVIDERS: PCP Family Medicine; Visit Provider Family Medicine | DX: D45 Polycythemia vera (principal) | CPT/HCPCS: 99195 ==

== ENCOUNTER 2022-07-16 19:37 | Outpatient (REF) | payer OTHER, SELFPAY ==
[2022-07-16 18:05] LABS: Prothrombin Time 9.8 sec (9.3-11.0)
== END 2022-07-16 19:38 | disposition home or self-care (01) ==
LOC: NCHCN 19:37
PROVIDERS: PCP Family Medicine; Visit Provider Family Medicine
DX: K74.69 Other cirrhosis of liver (principal)
CPT/HCPCS: 85610

== ENCOUNTER 2023-01-27 07:00 | Outpatient (RCR) | payer OTHER, SELFPAY ==
[2023-01-27 07:19] LABS: HGB 14.1 g/dL (13.5-17.5)
[2023-01-27 07:51] LABS: Ferritin 100 ng/mL (26-388)
== END 2023-02-20 23:59 | disposition home or self-care (01) ==
LOC: INF 07:00
PROVIDERS: PCP Family Medicine; Visit Provider Family Medicine
DX: E83.118 Other hemochromatosis (principal)
CPT/HCPCS: 36415; 99195; 82728; 85018

== ENCOUNTER 2023-02-04 10:55 | Outpatient (REF) | payer OTHER, SELFPAY ==
[2023-02-04 15:59] LABS: HCT 42.6 % (40.0-50.0); HGB 14.5 g/dL (13.5-17.5); MCH 32.2 pg (27.0-33.0); MCV 95 fL (80-95); MPV 11.5 fL (8.0-11.0); Platelet Count 178 10^3/uL (130-400); RBC 4.51 10^6/uL (4.36-5.78); RDW-SD 45.1 fL
[2023-02-04 16:55] LABS: ALT 34 U/L (16-63); AST 22 U/L (15-37); Albumin 3.9 g/dL (3.4-5.0); Alkaline Phosphatase 141 U/L (46-116); Anion Gap 12.4 mmol/L (3-11); BUN 13 mg/dL (7-18); Bilirubin, Total 0.4 mg/dL (0.2-1.0); CO2 24.6 mmol/L (21.0-32.0); CREATININE 0.9 mg/dL (0.70-1.30); Calcium 9.5 mg/dL (8.5-10.1); Chloride 105 mmol/L (98-107); Estimated GFR 97.17 (mL/min/1.73m2); Glucose 196 mg/dL (74-106); Potassium 4.1 mmol/L (3.5-5.1); Sodium 142 mmol/L (136-145); Total Protein 7.4 g/dL (6.4-8.2)
== END 2023-02-04 10:56 | disposition home or self-care (01) ==
LOC: NCHCN 10:55
PROVIDERS: PCP Family Medicine; Visit Provider Family Medicine
DX: K74.60 Unspecified cirrhosis of liver (principal)
CPT/HCPCS: 80053; 85027; 85610

== ENCOUNTER → 2023-02-19 09:15 | Outpatient (BNVA) | payer OTHER, SELFPAY | PROVIDERS: PCP Family Medicine; Referring Provider Family Medicine; Visit Provider Surgery | DX: K42.9 Umbilical hernia without obstruction or gangrene (principal) | CPT/HCPCS: 99213 ==

== ENCOUNTER → 2023-02-27 02:58 | Outpatient (CLI) | payer OTHER, SELFPAY ==
--- NOTE | 2023-02-27 | DI.US_ITS ---
Exam(s) US ABDOMEN LIMITED EXAM: US ABDOMEN LIMITED CLINICAL HISTORY: HCC SCREENING, CIRRHOSIS OF LIVER, K74.60 TECHNIQUE: Ultrasound abdomen performed using standard protocol. COMPARISON: US US ABDOMEN LIMITED from 01/15/2022 FINDINGS: There is no ascites evident. LIVER: Liver appears less hyperechoic an on the prior study but does exhibit a slightly lobulated bor mago consistent with probable element of cirrhosis. There are no discrete ominous focal hepatic lesio ns identified GALLBLADDER/BILIARY: There are no gallstones. No gallbladder wall edema nor pericholecystic fluid. The common hepatic duct isnot dilated, measuring 4-5mm at the level of doris hepatis. PANCREAS: There is no evidence of pancreatic mass nor dilatation of the pancreatic duct. RIGHT KIDNEY:No evidence of solid mass, calculus, nor hydronephrosis. No cortical cysts evident. IMPRESSION: 1. Cirrhotic appearing liver without evidence of distinct mass in the liver. 2. No evidence of cholelithiasis nor dilatation of the biliary tree. 3. There is no ascites. DATA REPOSITORY:
== END ==
PROVIDERS: PCP Family Medicine; Visit Provider Family Medicine
DX: K74.60 Unspecified cirrhosis of liver (principal)
CPT/HCPCS: 76705

== ENCOUNTER 2023-02-28 07:02 | Day surgery (SDC) | payer OTHER, SELFPAY ==
--- NOTE | 2023-02-27 18:28 | W.PM.DSUDISC ---
Date of service: 02/28/23 Time of Service: 10:15 Discharge Plan Disposition Patient Disposition: Home Condition: Good Discharge Details Reason For Visit: Umbilical hernia repair Attending Provider: José Armenta Primary Care Provider: Gerardo Ramos Home Meds and New Rx's Prescriptions: New tramadol 50 mg tablet 50 mg PO BID PRNQty: 10 0RF Rx Instructions: Take 1 tablet by mouth up to every 12 hours if needed for severe pain. Do not drive while using this medication. Continued nicotine (polacrilex) 4 mg gum 4 mg buccal Q2H ropinirole 0.5 mg tablet 0.5 mg PO QHS Rx Instructions: administer 1-3 hours before bedtime atorvastatin 20 mg tablet 20 mg PO QHS Incruse Ellipta 62.5 mcg/actuation blister with device 1 inh inhalation Q24H metoprolol succinate 25 mg tablet extended release 24 hr 25 mg PO DAILY omeprazole 20 mg capsule,delayed release(DR/EC) 20 mg PO DAILY Proair Digihaler 90 mcg/actuation aero powdr breath act w/sensor 90 mcg inhalation Q4H PRN lisinopril 5 mg tablet 5 mg PO HS epinephrine 0.3 mg/0.3 mL auto-injector 0.3 mg IM Q4H PRN acetaminophen 500 mg capsule 500 mg PO Q6H PRN Discharge Instructions Instructions: Umbilical Hernia Repair (DC) Additional Instructions: Jeffrey, we were able to fix your umbilical (bellybutton) hernia today without any difficulty. I did implant a permanent mesh like we talked about. Everything went very smoothly, and hopefully this will provide some relief from the discomfort that you have been experiencing. I would expect a fair amount of bruising in the area in the days to follow. There may also be a little bit of redness around the actual incision site, but it should be relatively limited, and certainly not spreading. If you notice that it is increasing in size, and becoming increasingly painful, I would like to know right away. You should be using Tylenol and ibuprofen to help with postoperative pain. I usually suggest alternating these medications so that there is some overlap. Heating pads and ice packs can also be used at your discretion. I provided a prescription for some stronger pain medication if you need it. Please leave the bandages in place until Friday. Remove all bandages at that point, and get into the shower washing the incision with warm soapy water. Pat it dry. As long as its dry afterwards, you do not need any specific bandaging on top of it. If you find it more comfortable to have a Band-Aid because of irritation from your belt line, that is fine. I look forward to seeing you in the office on March 12 at 3:15. If you have any questions in the meantime, please do not hesitate to call. Activity:: No heavy lifting Remove Dressings/Wound Care:: 48 hours Shower/Bathe:: 48 hours Diet:: As Tolerated Discharge Orders Discharge Orders: Discharge Order (Routine); Ordered 02/27/23 Ordered By: José Armenta DS: Diagnosis Discharge Diagnosis (1) Umbilical hernia: Status: Acute Asessment and Plan: Follow-up in my office
--- NOTE | 2023-02-27 18:29 | ROE_ITS ---
Date of service: 02/28/23 Time of Service: 10:21 Operative Note Operative Note DATE OF PROCEDURE: 02/28/23 PRE-OP DIAGNOSIS: Umbilical hernia PROCEDURE: Open umbilical hernia repair with implanted permanent mesh SURGEON: José Armenta REGISTERED VETERINARY TECHNICIAN: Farideh Del Rio ANESTHESIA TYPE: General LMA/ETT Refer to Anesthesia Record ESTIMATED BLOOD LOSS: 25 COMPLICATIONS: None Patient was transported to: PACU Patient's condition: stable Implants: Ventralex 6.4 cm Indications: Jeffrey is a 62-year-old male with a enlarging and painful umbilical hernia Findings: Incarcerated umbilical hernia Procedure Description: After the induction of general endotracheal care, I prepped and draped the anterior abdominal wall in the usual fashion. Next, established a generous field block using local anesthetic with epinephrine. Next, I made a semicircular incision along the superior aspect of the umbilicus over the greatest area of the hernia. I dissected down to the hernia sac, which was liberated from the surrounding tissues using circumferential dissection. I continued this dissection down onto the anterior aspect of the fascia. The caudal most portion of the fascia was gently dissected away from the hernia sac and secured with a Florecita clamp. Next, using circumferential dissection around the neck of the hernia, I completely liberated it from the edge of the fascia. I reduced it back down into the peritoneal cavity. The size of the fascial defect was approximately 3.75 cm wide by approximately 2 cm top to bottom. Next, I delivered a 6.4 cm Ventralex light hernia mesh into the subfascial position. The straps were split and secured to the fascia with interrupted Prolene's. Next, the fascial defect was closed in horizontal fashion with interrupted Prolene's. The subcutaneous skin was irrigated. It was hemostatic. Interrupted Vicryl sutures were used to obliterate the space and pexied the underside of the umbilicus down into a more cosmetic position. The skin was then closed with running subcuticular stitches. Bandages were applied. Patient was allowed awaken anesthesia and transferred to the recovery unit.
[2023-02-28] VITALS (9 sets, daily range): BP systolic 91–151; BP diastolic 56–82; PULSE 44–66; RESP 16–19; TEMP 36.2–36.8; O2SAT 94–98; BMI 25.9
[2023-02-28] MEDS: Acetaminophen 500 MG TAB 1000 MG PO (07:34)
[2023-02-28] MEDS: Gabapentin 300 MG CAP PO (07:35)
[2023-02-28] MEDS: Celecoxib 200 MG CAP PO (07:35)
[2023-02-28] MEDS: Lactated Ringers 1,000 ML 80 ML IV (08:05)
--- NOTE | 2023-02-28 08:28 | ANES.PREOP_ITS ---
General Info Date of Service Date Performed: 02/28/23 Height: 5 ft 10 in Weight: 81.9 kg Body Mass Index (BMI): 25.9 Surgical Procedure: Operation Date: 02/28/23 08:40 Proposed Procedure Side Surgeon p Herniorrhaphy Umbilical w/Mesh José Armenta MD Meds Allergies and Home Medications Allergies Allergy/AdvReac Type Severity Reaction Status Date / Time bee venom protein (honey bee) Allergy Mild Anaphylaxis Unverified 02/28/23 07:41 Penicillins AdvReac Intermediate Nausea Unverified 02/28/23 07:41 codeine [Codeine] AdvReac Nausea Unverified 02/28/23 07:41 Home Medication Medication Instructions Recorded acetaminophen 500 mg capsule 500 mg PO Q6H PRN 02/13/23 albuterol sulfate 90 mcg/actuation 90 mcg inhalation Q4H PRN 02/13/23 breath activated powder inhaler,sensor (Proair Digihaler) atorvastatin 20 mg tablet 20 mg PO QHS 02/13/23 epinephrine 0.3 mg/0.3 mL 0.3 mg IM Q4H PRN 02/13/23 injection, auto-injector lisinopril 5 mg tablet 5 mg PO HS 02/13/23 metoprolol succinate 25 mg 25 mg PO DAILY 02/13/23 tablet,extended release 24 hr nicotine (polacrilex) 4 mg gum 4 mg buccal Q2H 02/13/23 omeprazole 20 mg capsule,delayed 20 mg PO DAILY 02/13/23 release ropinirole 0.5 mg tablet 0.5 mg PO QHS 02/13/23 umeclidinium 62.5 mcg/actuation 1 inh inhalation Q24H 02/13/23 blister powder for inhalation (Incruse Ellipta) Current Visit Medications: Current Medications Generic Name Dose Route Start Last Admin Trade Name Freq PRN Reason Stop Dose Admin Acetaminophen 1,000 mg 02/28/23 06:00 02/28/23 07:34 Acetaminophen 500 Mg Tab PO 02/28/23 18:00 1,000 mg PREOP LUCILLE Administration Celecoxib 200 mg 02/28/23 06:00 02/28/23 07:35 Celecoxib 200 Mg Cap PO 02/28/23 18:00 200 mg PREOP LUCILLE Administration Gabapentin 600 mg 02/28/23 06:00 Gabapentin 300 Mg Cap PO 02/28/23 16:00 PREOP LUCILLE Hydromorphone HCl 0.2 mg 02/27/23 18:30 Hydromorphone 2 Mg/Ml Syr IVP 03/29/23 18:29 Q1H PRN PRN Ringer's Solution 1,000 mls @ 80 mls/hr 02/28/23 06:00 02/28/23 08:05 IV 03/29/23 23:59 80 mls/hr INFUSION LUCILLE Administration Cefazolin Sodium/Dextrose 2 gm in 50 mls @ 100 mls/hr 02/28/23 06:00 Ancef Duplex IVPB 02/28/23 18:00 PREOP LUCILLE IV Miscellaneous Supplies 1 each 02/28/23 06:00 Iv Access IV 03/29/23 23:59 DIRECTED LUCILLE Sodium Chloride 0 ml 02/28/23 06:00 Normal Saline Flush 10 Ml Syr IV 03/29/23 23:59 PRN PRN Sodium Chloride 0 ml 02/28/23 06:00 Normal Saline 10 Ml Vial IJ 03/29/23 23:59 DIRECTED PRN Sterile Water 0 ml 02/28/23 06:00 Water,Injection,Sterile 10 Ml Vial IJ 03/29/23 23:59 DIRECTED PRN Tramadol HCl 50 mg 02/27/23 18:30 Tramadol 50 Mg Tab PO 03/29/23 18:29 Q6H PRN PRN Pain PFSH Active Problems Active Problems: Problem Status Onset Code Overdose T50.901A Hyperglycemia R73.9 Hyperkalemia E87.5 Pneumonia J18.9 Transaminitis R74.01 Umbilical hernia K42.9 Tobacco chew use Z72.0 Hyperlipidemia E78.5 Medical History Medical History Alcohol abuse, in remission Anxiety Chronic low back pain Chronic obstructive lung disease Cirrhosis of liver Essential hypertension GERD (gastroesophageal reflux disease) Hemochromatosis History of hepatitis C Restless leg syndrome Medical History Comments:: 02/28/23 smokers cough Surgical History Surgical History Acromioplasty (L) Shoulder History of surgery on wrist pt. denies Tobacco Smoking/Tobacco Use Status: Current every day Tobacco Type: smokeless tobacco Alcohol Alcohol Intake: current Alcohol intake frequency: a few times a week Alcohol typ e: beer Substance Use Substance use: Daily Substance use type: marijuana Details: 02/27/23 - smoked marijuana Vital Signs and Lab Results Vital Signs Most Recent Vital Signs in EMR: Most Recent Vital Signs Temp Pulse Resp BP Pulse Ox 36.8 C 66 16 151/82 H 97 02/28/23 07:28 02/28/23 07:28 02/28/23 07:28 02/28/23 07:28 02/28/23 07:28 Lab Results Blood Type / Crossmatch: No Data to Display Complete Blood Count: White Blood Count 6.70 10^3/uL (4.4-10.8) 02/04/23 09:30 Red Blood Count 4.51 10^6/uL (4.36-5.78) 02/04/23 09:30 Hemoglobin 14.5 g/dL (13.5-17.5) 02/04/23 09:30 Hematocrit 42.6 % (40.0-50.0) 02/04/23 09:30 Platelet Count 178 10^3/uL (130-400) 02/04/23 09:30 Complete Metabolic Panel: Sodium 142 mmol/L (136-145) 02/04/23 09:30 Potassium 4.1 mmol/L (3.5-5.1) 02/04/23 09:30 Chloride 105 mmol/L (98-107) 02/04/23 09:30 Carbon Dioxide 24.6 mmol/L (21.0-32.0) 02/04/23 09:30 BUN 13 mg/dL (7-18) 02/04/23 09:30 Creatinine 0.9 mg/dL (0.70-1.30) 02/04/23 09:30 Est GFR (CKD-EPI 2020) 97.17 (mL/min/1.73m2) 02/04/23 09:30 Calcium 9.5 mg/dL (8.5-10.1) 02/04/23 09:30 Albumin 3.9 g/dL (3.4-5.0) 02/04/23 09:30 Glucose 196 mg/dL (74-106) H 02/04/23 09:30 Liver Function Panel: Alanine Aminotransferase (ALT/SGPT) 34 U/L (16-63) 02/04/23 09: 30 Aspartate Amino Transf (AST/SGOT) 22 U/L (15-37) 02/04/23 09:30 Coagulation Panel: No Data to Display Cardiac Panel: No Data to Display Arterial Blood Gas: No Data to Display Venous Blood Gas: No Data to Display Pancreas Panel: No Data to Display Thyroid Panel: No Data to Display Infectious Disease: No Data to Display Blood Cultures: No Data to Display Toxicology Panel: No Data to Display Imaging and Studies Imaging and Studies Study information below may be from another EMR and interpreted by another provider. Please see original notes in EMR for more complete details. EKG Summary: 04/15/21: Exam: Resting ECG Reason for Exam: od Patient Location: E HR:106 bpm ECG Measurements Heart Rate 106 AXIS AL 151 P 87 QRSd 89 QRS 79 QT 320 T53 QTc 426 Conclusion Sinus tachycardia...rate> 99. Sinus. No STEMI. I have reviewed and interpreted ECG and agree with software generated interpretation. I have reviewed and I agree with the emergency room physician's ECG interpretation. Electronically signed by: <Electronically signed by Amanda Bean M.D. in [place]> 04/16/21 0851 Pulmonary Function Summary: 04/24/2016: INTERPRETATION OF STUDY: Spirometry shows mild obstructive airways disease with no significant bronchodilator response. LUNG VOLUMES: Show no evidence of restriction. DIFFUSION CAPACITY: Moderately reduced, which is normal when corrected to alveolar volume. AIRWAYS RESISTANCE: Normal. IMPRESSION: Mild obstructive airways disease with no significant bronchodilator response. This is associated with moderate diffusion defect. There is some flattening of the expiratory loop on both efforts for spirometry. Therefore, intrathoracic large airway obstruction should be clinically further evaluated. When this study was compared to previous one from 11/17/12, the patient has a 350 cc decline in FVC, and FEV1 has improved significantly by 560 cc. Clinical correlation recommended. cc: Marcelo Ignacio M.D. Anesthesia Assessment and Plan Anesthesia History Personal History: No History of Anesthesia Complications Family History: No Family History of Anesthesia Complications Exercise Tolerance Exercise Tolerance: Metabolic Equivalents>4 Pertinent Negatives Pertinent Negatives: No Symptoms of GERD and No Major Cardiovascular Symptoms or Complaints Cardiac & Pulmonary Exam Cardiac Exam: Normal S1/S2 Heart Sounds Pulmonary Exam: Wheezing Present Implantable Cardiac Device Does patient have a Pacemaker or an ICD?: No Airway Exam Known Difficult Airway: No Mallampati Class: 1 Mouth Opening: Normal (> 3cm) Thyromental Distance: Greater than 3 cm Facial Hair: Full Valenzuela (Short) Neck Range of Motion: Full ROM Neck Circumference: Normal Teeth Condition: Normal Dentition ASA Classification ASA Score: ASA 2 Emergency Case?: No NPO Status NPO Status: NPO Clears >2 hours, Solids >8 hours Anesthesia Plan Resuscitation Status: Full Code Anesthesia Technique: General Anesthesia Airway Planned: LMA Monitors Used: Standard Monitors
[2023-02-28] MEDS: ceFAZolin 2 GM/50 ML BAG IVPB (09:36)
[2023-02-28] MEDS: Bupivacaine 0.25% Pres-Free 30 ML VIAL (10:12)
[2023-02-28] MEDS: EPINEPHrine 30 MG/30 ML VIAL (10:12)
[2023-02-28] MEDS: ePHEDrine 25 MG/5 ML Syringe IVP (11:08)
--- NOTE | 2023-02-28 11:53 | W.ANESPOSTOP ---
Postoperative Evaluation Date, Time and Location Date Performed: 02/28/23 Time Performed: 11:20 Patient Location: PACU Vital Signs Most Recent Imported Vital Signs: Most Recent Vital Signs Temp Pulse Resp BP Pulse Ox 36.3 C L 61 16 118/59 L 95 02/28/23 11:28 02/28/23 11:28 02/28/23 11:28 02/28/23 11:28 02/28/23 11:28 Pain Score Most Recent Pain Score: Most Recent Pain Score Pain Level 0 02/28/23 11:28 Assessment Mental Status: Awake (Alert & Oriented to Patient Baseline) Airway and Respiratory Function: Patent airway with normal (patient baseline) respiratory exam Cardiovascular Function: Hemodynamically Stable Hydration Status: Adequately Hydrated Nausea & Vomiting: No Nausea or Vomiting Pain: Pt. Denies Any Pain Peripheral Nerve Block: Patient did not receive a nerve block
== END 2023-02-28 12:35 | disposition home or self-care (01) ==
PROVIDERS: PCP Family Medicine; Visit Provider Surgery
PROC: (CPT 49593; principal; 2023-02-28 08:30)
DX: K42.0 Umbilical hernia with obstruction, without gangrene (principal); K74.60 Unspecified cirrhosis of liver; K21.9 Gastro-esophageal reflux disease without esophagitis; J44.9 Chronic obstructive pulmonary disease, unspecified; F17.220 Nicotine dependence, chewing tobacco, uncomplicated
CPT/HCPCS: 49593; C1781; J0690; J1100; J2405; J2704; J3010

== ENCOUNTER → 2023-03-12 15:02 | Outpatient (BNVA) | payer OTHER, SELFPAY | PROVIDERS: PCP Family Medicine; Referring Provider Family Medicine; Visit Provider Surgery | DX: Z48.817 Encounter for surgical aftercare following surgery on the skin and subcutaneous tissue (principal) ==

== ENCOUNTER 2023-06-19 17:25 | Emergency (ER) | payer OTHER, SELFPAY ==
[2023-06-19] VITALS (47 sets, daily range): BP systolic 118–165; BP diastolic 80–102; PULSE 80–108; RESP 13–24; TEMP 36.1; O2SAT 91–98
--- NOTE | 2023-06-19 17:30 | RT.EKG_ITS ---
APPROVED REPORT Exam: Resting ECG Reason for Exam: apneic for 45min Patient Location: E HR:104 bpm ECG Measurements Heart Rate 104 AXIS KS 158 P 80 QRSd 88 QRS 78 QT 358 T 74 QTc 472 Conclusion Sinus tachycardia rate [address] acute [address] changes
--- NOTE | 2023-06-19 17:30 | DI.RAD_ITS ---
Exam(s) XR PORTABLE CHEST AP EXAM: XR PORTABLE CHEST AP CLINICAL HISTORY: sob. TECHNIQUE: 2D digital imaging was performed. COMPARISON: CR,XR XR CHEST 2V PA LATERAL from 04/15/[address] CHEST LUNG CANCER SCREEN from 07/02/2021 FINDINGS: Single AP portable view. Heart size is normal. The previously present large fluid-filled bulla in the left chest is no longer seen. There is, [facility], a right paratracheal density evident, this measuring approximately 1.5 by 3 cm. Possible mass. There are no pleural effusions. No pulmonary edema. No fractures. No pneumothorax. IMPRESSION: Significant improvement in the appearance of the left lung but there is now a right paratracheal dens ity which may be a mass. Close follow-up recommended. Consider CT scan. DATA REPOSITORY: RADIATION DOSE DELIVERED:
--- NOTE | 2023-06-19 17:36 | ED.GENADUL_ITS ---
Discharge Plan Disposition Patient Disposition: Admit to [facility] Condition: Fair Discharge Details Chief Complaint: OD/Poison Clinical Impression: Overdose, Hypoxia, Polysubstance abuse Primary Care Provider: Gerardo Ramos ED Provider: Rhoda Rivera Home Meds and New Rx's Prescriptions: No Action nicotine (polacrilex) 4 mg gum 4 mg buccal Q2H ropinirole 0.5 mg tablet 0.5 mg PO QHS Rx Instructions: administer 1-3 hours before bedtime atorvastatin 20 mg tablet 20 mg PO QHS Incruse Ellipta 62.5 mcg/actuation blister with device 1 inh inhalation Q24H metoprolol succinate 25 mg tablet extended release 24 hr 25 mg PO DAILY omeprazole 20 mg capsule,delayed release(DR/EC) 20 mg PO DAILY Proair Digihaler 90 mcg/actuation aero powdr breath act w/sensor 90 mcg inhalation Q4H PRN lisinopril 5 mg tablet 5 mg PO HS epinephrine 0.3 mg/0.3 mL auto-injector 0.3 mg IM Q4H PRN acetaminophen 500 mg capsule 500 mg PO Q6H PRN Medical Decision Making Emergent evaluation of overdose and apnea. Initial concerns for aspiration, pulmonary edema, polysubstance ingestion, toxidrome. Patient has noted to be hypoxic. Supplemental oxygen was applied. He is unable to provide significant amount of history at this time. His sores and nasal bleeding are indicated to me of chronic drug use. Initial plan for lab work, supplemental oxygen, chest x-ray. Lab work reviewed, white blood cell count not elevated, no significant anemia. There is a mild CADE. IV fluids given. Chest x-ray concerning for possible mass. I am suspicious that this is possibly an aspiration so chest CT was ordered. He desaturates off oxygen and particularly when he sleeps. He has not had any recurrence of apnea. Discussed with hospitalist, will admit for further monitoring of his hypoxia. Medical Records Medical records reviewed: Yes I reviewed the patient's medical records. Lab Data Lab results reviewed: Yes I reviewed the patient's lab results. ECG Data Attestation: I personally reviewed and interpreted this ECG (s) as follows: Prior ECG tracings: not available for review Interpretation: Sinus tachycardia 104, normal axis, no acute ST segment changes HPI General Date/Time Provider Initiated Documentation: 06/19/23 17:33 . Limitations to Documentation: altered mental status and physical limitation . Information obtained by: EMS . HPI Narrative: 62-year-old gentleman with unknown past medical history presents for evaluation after an overdose. EMS reports that 911 was called by bystander. They reported that they were smoking fentanyl the patient became unresponsive. On EMS arrival they noted that he had a heart rate of 30 and was not breathing, there was color change. 2 doses of IM Narcan were given which resulted in improvement in his vital signs patient became alert, confused and slightly agitated. Related Data Home Medications Medication Instructions Recorded Confirmed acetaminophen 500 mg capsule 500 mg PO Q6H PRN 02/13/23 06/19/23 albuterol sulfate 90 mcg/actuation 90 mcg inhalation Q4H PRN 02/13/23 06/19/23 breath activated powder inhaler,sensor (Proair Digihaler) atorvastatin 20 mg tablet 20 mg PO QHS 02/13/23 03/12/23 epinephrine 0.3 mg/0.3 mL 0.3 mg IM Q4H PRN 02/13/23 06/19/23 injection, auto-injector lisinopril 5 mg tablet 5 mg PO HS 02/13/23 06/19/23 metoprolol succinate 25 mg 25 mg PO DAILY 02/13/23 06/19/23 tablet,extended release 24 hr nicotine (polacrilex) 4 mg gum 4 mg buccal Q2H 02/13/23 06/19/23 omeprazole 20 mg capsule,delayed 20 mg PO DAILY 02/13/23 06/19/23 release ropinirole 0.5 mg tablet 0.5 mg PO QHS 02/13/23 06/19/23 umeclidinium 62.5 mcg/actuation 1 inh inhalation Q24H 02/13/23 06/19/23 blister powder for inhalation (Incruse Ellipta) Allergies Allergy/AdvReac Type Severity Reaction Status Date / Time bee venom protein (honey bee) Allergy Mild Anaphylaxis Unverified 06/19/23 17:36 Penicillins AdvReac Intermediate Nausea Unverified 06/19/23 17:36 codeine [Codeine] AdvReac Nausea Unverified 06/19/23 17:36 General Stated Complaint: OD/Poison BEVERLY: 2 PFSH All Active Problems (Updated 06/19/23 @ 20:57 by Rhoda Rivera MD) Polysubstance abuse (Acute) Hypoxia (Acute) Overdose (Acute) Hyperglycemia (Acute) Hyperkalemia (Acute) Pneumonia (Acute) Transaminitis (Acute) Umbilical hernia (Acute) Tobacco chew use (Acute) Hyperlipidemia (Acute) Medical History Alcohol abuse, in remission Cirrhosis of liver Restless leg syndrome GERD (gastroesophageal reflux disease) Anxiety Hemochromatosis History of hepatitis C Chronic obstructive lung disease Chronic low back pain Essential hypertension Surgical History History of surgery on wrist pt. denies Acromioplasty (L) Shoulder Family History Mother No problems noted. Father No problems noted. Social History Smoking/Tobacco Use Status: Current every day Tobacco Type: smokeless tobacco Smoking risk assessment performed?: Yes Alcohol Intake: current Alcohol Intake frequency: a few times a week Alcohol type: beer Drug use: Daily Substance use type: marijuana Details: 02/27/23 - smoked marijuana Housing: apartment Do you feel safe at home: Yes Do you feel safe in your relationship?: Yes Exam Narrative Exam Narrative: Review of Systems: All systems reviewed & are unremarkable except as noted in H PI and below: CONSTITUTIONAL: Alert, confused Well-developed HEENT: NCAT EYES: PERRL, no conjunctival injection EARS: no external abnormality NOSE epistaxis from left nare MOUTH Moist MM NECK: Symmetric, trachea midline, No thyromegaly THROAT oropharynx clear CVS: RRR, No murmurs or gallops. RESP: Hypoxia 88%, mild tachypnea, coarse breath sounds diffusely GI: Soft, Nontender, Nondistended, No organomegaly MSK: Extremities with full range of motion, no deformity or TTP SKIN: Warm, Dry. Multiple scattered sores NEURO: No focal neurologic deficits. Course Vital Signs Vital signs: Vital Signs Temperature 36.1 C L 06/19/23 17:26 Pulse 107 H 06/19/23 17:26 Respiratory Rate 16 06/19/23 17:26 Blood Pressure 165/101 H 06/19/23 17:26 Pulse Oximetry 93 06/19/23 17:26 Temperature 36.1 C L 06/19/23 17:26 Temperature Source Temporal Artery Scan 06/19/23 17:26 Pulse 107 H 06/19/23 17:26 Respiratory Rate 16 06/19/23 17:33 Respiratory Effort Normal, Non-Labored 06/19/23 17:33 Respiratory Depth Normal 06/19/23 17:33 Respiratory Pattern Normal 06/19/23 17:33 Blood Pressure 165/101 H 06/19/23 17:26 Blood Pressure Position Supine 06/19/23 17:26 Pulse Oximetry 93 06/19/23 17:26 Oxygen Delivery Method Room Air 06/19/23 17:26 Oxygen Flow Rate 0 06/19/23 17:26 Pain Level 0 06/19/23 17:26
[2023-06-19 17:45] LABS: Abs Immature Grans 0.43 10^3/uL (0.0-0.06); Absolute Basophil Count 0.09 10^3/uL (0.0-0.2); Absolute Eosinophil Count 0.25 10^3/uL (0.0-0.7); Absolute Lymphocyte Count 3.83 10^3/uL (1.2-3.4); Absolute Monocyte Count 1.06 10^3/uL (0.1-0.8); Absolute Neutrophil Count 4.95 10^3/uL (1.2-6.7); Basophils % 0.8; Eosinophils % 2.4; HCT 42.8 % (40.0-50.0); HGB 14.3 g/dL (13.5-17.5); Immature Grans % 4.1; Lymphocytes % 36.1; MCH 31.4 pg (27.0-33.0); MCHC 33.4 % (32.0-36.0); MCV 94 fL (80-95); MPV 10.1 fL (8.0-11.0); Neutrophils % 46.6; Platelet Count 203 10^3/uL (130-400); RBC 4.55 10^6/uL (4.36-5.78); RDW 13.3 % (11.8-14.1); RDW-SD 46.8 fL; WBC 10.61 10^3/uL (4.4-10.8)
[2023-06-19 18:03] LABS: ALT 46 U/L (16-63); AST 54 U/L (15-37); Albumin 3.9 g/dL (3.4-5.0); Alkaline Phosphatase 122 U/L (46-116); Anion Gap 11.9 mmol/L (3-11); BUN 18 mg/dL (7-18); Bilirubin, Total 0.5 mg/dL (0.2-1.0); CO2 26.1 mmol/L (21.0-32.0); CREATININE 1.4 mg/dL (0.70-1.30); Calcium 8.8 mg/dL (8.5-10.1); Chloride 101 mmol/L (98-107); Estimated GFR 57.18 (mL/min/1.73m2); Glucose 193 mg/dL (74-106); Magnesium 2.1 mg/dL (1.8-2.4); Potassium 4.1 mmol/L (3.5-5.1); Sodium 139 mmol/L (136-145); Total Protein 8.2 g/dL (6.4-8.2); Troponin I < 50 ng/L (<or=60)
[2023-06-19] MEDS: Normal Saline 1,000 ML 1000 ML IV (18:38)
--- NOTE | 2023-06-19 20:00 | DI.CT_ITS ---
Exam(s) CT CHEST PE CTA EXAM: CT CHEST PE CTA CLINICAL HISTORY: SOB. TECHNIQUE: Imaging Protocol: CT angiography of the chest was performed using pulmonary embolus jeremiah col. Multi planar reconstructions were performed. CONTRAST MATERIAL: Intravenous: Omnipaque 350 Contrast volume: 100 cc COMPARISON: CT CT CHEST LUNG CANCER SCREEN from 07/02/2021 FINDINGS: CHEST: PULMONARY ARTERIES: There are no intraluminal filling defects to suggest acute pulmonary emboli. LUNGS: There is COPD/severe emphysematous findings in the lung rudd. Multiple bullae.. However, t here are no confluent infiltrates nor pleural effusions. No pneumothorax. No ominous nodules. MEDIASTINUM: There is no hilar nor mediastinal adenopathy. Visualized thyroid unremarkable. CARDIAC: Heart size is upper normal. There is no pericardial effusion.Caliber of the thoracic aorta is within normal limits. There is no significant shift of the interventricular septum. PARTIALLY VISUALIZED UPPERMOST ABDOMEN: Cirrhotic appearing liver OSSEOUS: Mild deformity of right 3rd through 7th ribs consistent with acute nondisplaced fractures. Similar findings on the left involving ribs 2 through 6.. IMPRESSION: 1. No evidence of acute pulmonary emboli. No evidence of pulmonary infarction.No pleural effusions. 2. Severe COPD/emphysema. 3. Multiple bilateral nondisplaced rib fractures as described above. No pneumothorax RADIATION DOSE DELIVERED: Total DLP DATA REPOSITORY: All CT scans at this facility are submitted to the National Radiology Data Registry (NRDR) Dose Index Registry (DIR) with the [employer] (ACR). RADIATION OPTIMIZATION: All CT scans at this facility use at least one of these dose optimization te chniques: automated exposure control; mA and/or kV adjustment per patient size (includes targeted exa ms where dose is matched to clinical indication); or iterative reconstruction.
[2023-06-19 20:23] LABS: *AMPHETAMINES SCREEN URINE Negative (Negative); *BARBITURATES SCREEN URINE Negative (Negative); *BENZODIAZEPINES SCREEN URINE Negative (Negative); Cannabinoids THC Positive (Negative); Cocaine Screen,Urine Positive (Negative); METHADONE URINE SCREEN Negative (Negative); OPIATES URINE SCREEN Negative (Negative)
[2023-06-19 20:25] LABS: Tricyclic Antidepressants Negative (Negative)
[2023-06-19 20:34] LABS: Lab Add On Test DONE
[2023-06-19 20:40] LABS: C-Reactive Protein 0.22 mg/dL (0.0-0.3)
[2023-06-19] MEDS: Omnipaque 350 MG/ML 100 ML BTL IJ (20:44)
[2023-06-19] MEDS: Normal Saline - Diluent 50 ML VIAL IJ (20:49)
[2023-06-19] MEDS: Normal Saline Flush 10 ML SYR IVP (20:50)
[2023-06-19 21:02] LABS: Procalcitonin < 0.1 ng/mL
[2023-06-19 21:04] LABS: COVID-19 PCR Negative (Negative); Influenza A PCR Negative (Negative); Influenza B PCR Negative (Negative); RSV PCR Negative (Negative)
[2023-06-19 21:06] LABS: Source Nasopharynx
--- NOTE | 2023-06-19 21:43 | DI.VRAD_ITS ---
PROCEDURE INFORMATION: Exam: CTA Chest With Contrast Exam date and time: 06/19/2023 8:51 PM Age: 62 years old Clinical indication: Shortness of breath; Additional info: SOB TECHNIQUE: Imaging protocol: Computed tomographic angiography of the chest with contrast. Exam focused on the arteries. 3D rendering (Not supervised by radiologist): MIP and/or 3D reconstructed images were created by the technologist. Contrast material: OMNI 350; Contrast volume: 100 ml; Contrast route: INTRAVENOUS (IV); COMPARISON: CT CHEST LUNG CANCER SCREEN 07/02/2021 8:16 AM FINDINGS: Pulmonary arteries: Normal. No pulmonary emboli. Aorta: Unremarkable. No aortic aneurysm. No aortic dissection. Lungs: Severe underlying COPD noted. Pleural spaces: Unremarkable. No pneumothorax. No pleural effusion. Heart: Unremarkable. No cardiomegaly. No pericardial effusion. Lymph nodes: Unremarkable. No enlarged lymph nodes. Liver: There is nodular change to the hepatic surface suggesting a degree of underlying cirrhosis. Stomach and bowel: There appears to be a degree of gastric distention. Bones/joints: Old right rib fracture. There is some deformity of the right 3rd through 7th ribs suggesting acute fracture. On the left there appears to be involvement of the 2nd through 6th ribs, new since previous exam. Soft tissues: Unremarkable. IMPRESSION: 1. Multiple bilateral rib fractures. 2. Severe underlying COPD noted. 3. No evidence for pulmonary embolus. 4. Hepatic morphology consistent with underlying cirrhosis. Dictated and Authenticated by: Rosalinda Reynolds MD. Ordering:BO oPpe MD
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
--- NOTE | 2023-06-19 22:18 | PGE_ITS ---
Date of Service Date of service: 06/19/23 Time of Service: 22:19 Subjective Subjective Interval history since last seen: I was asked to admit Mr Moseley to the hospitalist service for acute hypoxic respiratory failure following an overdose after smoking fentanyl. The patient is A&Ox3 and is choosing to leave the ED against medical advice, even though he is requiring oxygen and realizes that he might . If I'm ready, I'm ready. He is signing AMA paperwork. Discussed with Dr Rivera, with whom I had also reviewed the CT results. Objective Last Vital Signs Temp 36.1 C L 06/19/23 17:26 Pulse 82 06/19/23 18:46 Resp 18 06/19/23 18:50 BP 122/96 H 06/19/23 18:46 Pulse Ox 96 06/19/23 18:50 Laboratory Results - last 24 hr 06/19/23 06/19/23 06/19/23 17:30 19:55 20:23 WBC 10.61 RBC 4.55 Hgb 14.3 Hct 42.8 MCV 94 MCH 31.4 MCHC 33.4 RDW 13.3 Plt Count 203 MPV 10.1 Immature Gran % 4.1 Neutrophils % 46.6 Lymphocytes % 36.1 Monocytes % 10.0 Eosinophils % 2.4 Basophils % 0.8 Nucleated RBC % 0.0 Absolute Neutrophils 4.95 Absolute Lymphocytes 3.83 H Absolute Monocytes 1.06 H Absolute Eosinophils 0.25 Absolute Basophils 0.09 Sodium 139 Potassium 4.1 Chloride 101 Carbon Dioxide 26.1 Anion Gap 11.9 H BUN 18 Creatinine 1.4 H Est GFR (CKD-EPI 2020) 57.18 Glucose 193 H Calcium 8.8 Magnesium 2.1 Total Bilirubin 0.5 AST 54 H ALT 46 Alkaline Phosphatase 122 H Troponin I < 50 C-Reactive Protein 0.22 Total Protein 8.2 Albumin 3.9 Procalcitonin < 0.1 Urine Opiates Screen Negative Urine Methadone Screen Negative Ur Barbiturates Screen Negative Ur Tricyclics Screen Negative Ur Amphetamines Screen Negative U Benzodiazepines Scrn Negative Urine Cocaine Screen Positive A Ur THC Screen Positive A COVID-19 Source Nasopharynx SARS-CoV-2 (PCR) Negative Influenza Type A (PCR) Negative Influenza Type B (PCR) Negative RSV (PCR) Negative Add-On Test Request DONE Time Spent with Patient Time Spent with Patient: <25 minutes Time was spent: preparing to see the patient(eg.review tests), ordering medications,tests, procedures, referring, communicating with other health health and social care teacher, indepentently interpreting results and counseling the patient
== END 2023-06-19 22:21 | disposition left against medical advice (07) ==
PROVIDERS: Internal Medicine; Emergency Provider Emergency Medicine; PCP Family Medicine
DX: T40.411A Poisoning by fentanyl or fentanyl analogs, accidental (unintentional), initial encounter (principal); R41.82 Altered mental status, unspecified; R00.0 Tachycardia, unspecified; K74.60 Unspecified cirrhosis of liver; I10 Essential (primary) hypertension; E78.5 Hyperlipidemia, unspecified; F19.90 Other psychoactive substance use, unspecified, uncomplicated; J44.9 Chronic obstructive pulmonary disease, unspecified; Z79.899 Other long term (current) drug therapy; Y92.89 Other specified places as the place of occurrence of the external cause
CPT/HCPCS: 00123; 36415; 71275; 80053; 80307; 84145; 87637; 93005; 96361; 99285; 71045; 83735; 84484; 85025; 86140; 93010; 99284; J3490

== ENCOUNTER → 2023-09-03 01:45 | Outpatient (CLI) | payer OTHER, SELFPAY ==
--- NOTE | 2023-09-03 08:00 | DI.US_ITS ---
Exam(s) US ABDOMEN LIMITED EXAM: US ABDOMEN LIMITED CLINICAL HISTORY: CIRRHOSIS OF LIVER,K74.60 TECHNIQUE: Ultrasound abdomen performed using standard protocol. COMPARISON: US US ABDOMEN LIMITED from 02/27/[address] CHEST PE CTA from 06/19/2023 FINDINGS: PANCREAS: Normal where visualized. LIVER: The liver has a coarsened echotexture. There is a nodular contour of the liver. The findings are consistent with hepatic cirrhosis. The liver is isoechoic to the adjacent kidney. Hepatopetal flow in the Portal Vein. The liver measures in 17.4 cm length. There is a 2.7 x 1.1 x 1.9 cm hypoecho ic areas seen within the liver. This areas ill-defined and does not appear to be consistent with foc al fat or focal fatty sparing. GALLBLADDER: No evidence of cholelithiasis. No evidence of wall thickening. No pericholecystic fluid identified. BILIARY SYSTEM: Common bile duct measures < 7 mm. No intrahepatic biliary ductal dilation. HACKETT'S SIGN: Negative. RIGHT KIDNEY: Kidney is normal in size. No evidence of renal calculi. No evidence of hydronephrosis. No renal mass or cyst identified. ASCITES: None seen. IMPRESSION: 1. Coarsened echotexture of the liver with a nodular contour consistent with hepatic cirrhosis. 2. 2.7 x 1.1 x 1.9 cm hypoechoic area within the liver. Further evaluation with abdominal MRI withou t and with contrast is recommended. Unexpected findings DATA REPOSITORY:
== END ==
PROVIDERS: PCP Family Medicine; Visit Provider Family Medicine
DX: K74.60 Unspecified cirrhosis of liver (principal)
CPT/HCPCS: 76705

== ENCOUNTER 2023-11-12 09:43 | Outpatient (REF) | payer OTHER, SELFPAY ==
[2023-11-12 15:54] LABS: Abs Immature Grans 0.05 10^3/uL (0.0-0.06); Absolute Basophil Count 0.04 10^3/uL (0.0-0.2); Absolute Eosinophil Count 0.15 10^3/uL (0.0-0.7); Absolute Lymphocyte Count 1.84 10^3/uL (1.2-3.4); Absolute Neutrophil Count 4.72 10^3/uL (1.2-6.7); Basophils % 0.5 %; Eosinophils % 2.1 %; HCT 43.9 % (40.0-50.0); HGB 15.2 g/dL (13.5-17.5); Immature Grans % 0.7 %; Lymphocytes % 25.2 %; MCH 31.2 pg (27.0-33.0); MCHC 34.6 % (32.0-36.0); MCV 90 fL (80-95); MPV 11.1 fL (8.0-11.0); Monocytes % 6.8 %; Neutrophils % 64.7 %; Platelet Count 197 10^3/uL (130-400); RBC 4.87 10^6/uL (4.36-5.78); RDW 12.8 % (11.8-14.1); RDW-SD 42.3 fL
[2023-11-12 16:42] LABS: Hemoglobin A1C 6.2 % (<5.7)
[2023-11-12 16:55] LABS: ALT 30 U/L (16-63); AST 15 U/L (15-37); Albumin 4.3 g/dL (3.4-5.0); Alkaline Phosphatase 112 U/L (46-116); Anion Gap 10.4 mmol/L (3-11); BUN 14 mg/dL (7-18); Bilirubin, Total 1.1 mg/dL (0.2-1.0); CO2 24.6 mmol/L (21.0-32.0); Calcium 9.3 mg/dL (8.5-10.1); Chloride 101 mmol/L (98-107); Ferritin 87 ng/mL (26-388); Glucose 178 mg/dL (74-106); Potassium 3.6 mmol/L (3.5-5.1); Sodium 136 mmol/L (136-145)
[2023-11-12 17:19] LABS: Iron 196 ug/dL (65-175); Total Iron Binding Capacity 262 ug/dL (250-450); Transferrin Sat 75 % (20-55)
== END 2023-11-12 09:44 | disposition home or self-care (01) ==
LOC: NCHCN 09:43
PROVIDERS: PCP Family Medicine; Visit Provider Student in an Organized Health Care Education/Training Program
DX: E83.119 Hemochromatosis, unspecified (principal); K74.60 Unspecified cirrhosis of liver; Z13.1 Encounter for screening for diabetes mellitus
CPT/HCPCS: 80053; 82728; 83036; 83540; 83550; 85025

== ENCOUNTER 2024-03-25 16:39 | Outpatient (REF) | payer OTHER, SELFPAY ==
[2024-03-25 15:03] LABS: Iron 88 ug/dL (65-175); Total Iron Binding Capacity 245 ug/dL (250-450); Transferrin Sat 36 % (20-55)
[2024-03-25 15:05] LABS: ALT 24 U/L (16-63); AST 24 U/L (15-37); Albumin 3.5 g/dL (3.4-5.0); Alkaline Phosphatase 109 U/L (46-116); Anion Gap 11.7 mmol/L (3-11); BUN 16 mg/dL (7-18); Bilirubin, Total 0.49 mg/dL (0.2-1.0); CO2 24.3 mmol/L (21.0-32.0); CREATININE 1.1 mg/dL (0.70-1.30); Calcium 9.7 mg/dL (8.5-10.1); Chloride 101 mmol/L (98-107); Ferritin 151 ng/mL (26-388); Glucose 214 mg/dL (74-106); Sodium 137 mmol/L (136-145); Total Protein 7.7 g/dL (6.4-8.2)
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
--- OUTSIDE RECORDS SUMMARY | 2024-03-25 16:48 | XMS_ITS | Encounter Summary ---
Author Organization [facility] [place] [address] Care Team Providers Care Trailer Body Assembler Name Role Phone Angy Ortega APRN Primary Care Provider [phone] Encounter Details Date Type Department Care Team (Latest Contact Info) Description 10/15/2023 Travel Social History Tobacco Use Types Packs/Day Years [...] 10:00 AM EDT Office [place] [address] Tessie Echavarria APRN [facility] [place] [address] documented as of this encounter Visit Diagnoses Not on filedocumented in this encounter Care Teams Trailer Body Assembler Relationship Specialty Start Date End Date Angy Ortega [place]N [address] [place] [address] PCP - General 01/27/15 01/03/24 documented as of this encounter
--- OUTSIDE RECORDS SUMMARY | 2024-03-25 16:48 | XMS_ITS | Encounter Summary ---
Author Organization [facility] [place] [address] Care Team Providers Care Childcare Attendant Name Role Phone Angy Ortega APRN Primary Care Provider Encounter Details Date Type Department Care Team (Late st Contact Info) Description 05/29/2019 Ancillary Procedure Radiology Library at [facility] [place] [address] Angy Ortega APRN [address] [place] [address] [place] [address] Social History Tobacco Use Types Packs/Day Years [...] 10:00 AM EDT Office Visit Gastroenterology at [facility] [place] [address] Tessie Echavarria APRN [facility] [place]STRO[place] [address] documented as of this encounter Procedures Procedure Name Priority Date/Time Associated Diagnosis Comments FILM LIBRARY STORAGE ONLY NM PET/CT Routine 05/29/2019 12:00 AM EST documented in this encounter Results * Film Library- Storage Only NM Pet / CT (05/29/2019 12:00 AM EST) Narrative ANDREE - 06/01/2019 9:40 AM EST This exam is auto-finalizing. It's purpose is for storage only. Angy Ortega APRN IMG FILM LIBRARY ORD ERABLES [place], [place] documented in this encounter Visit Diagnoses Not on filedocumented in this encounter Care Teams Childcare Attendant Relationship Specialty Start Date End Date Angy Ortega APRN [address] [place] [address] PCP - General 01/27/15 01/03/24 documented as of this encounter
--- OUTSIDE RECORDS SUMMARY | 2024-03-25 16:48 | XMS_ITS | Encounter Summary ---
[place] [address] Care Team Providers Care Tobacco Grader Name Role Phone Shannon Angy ANNEMARIE Primary Care Provider [phone] Reason for Referral * Consultation (Urgent) - Authorized Specialty Diagnoses / Procedures Referred By Contcarmen t Referred To Contact Gastroenterology Diagnoses Hepatomegaly, not elsewhere classified PT 63-M, W/HX OF HEREDITARY HEMOCHROMATOSIS, ALCOHOL DEPENDENCE IN REMISSION, IN RESPONSE TO 10/15/23 MRI W/ AND W/O CONTRAST OF HIS LIVER WHICH HAD SCATTERED LR-3 LESIONS, THE LARGESST OF WHICH WAS 1.0 CM. MRI WAS ORDERED AFTER 09/03/23 SURVEILLANCE US OF LIVER SHOWED 2.7 CM LESION POSSIBLE HCC Roge Juares PA [address] [place] [address] [facility] [address] [place] [address] Referral ID Status Reason Start Date Expiration Date Visits Requested Visits Authorized [id number] Authorized Consult, Test & Treat PCP Updated and/or Approved 10/20/2023 10/19/2024 6 6 Encounter Details Date Type Department Care Team (Late st Contact Info) Description 10/20/2023 Transcribe Orders eDH Incoming Referrals [phone] Roge Juares PA [address] [place] [address] Hepatomegaly, not elsewhere classified Social History Tobacco Use Types Packs/Day Years [...] 10:00 AM EDT Office [place] [address] Tessie Echavarria APRN [facility] [place] [address] Scheduled Referrals Name Type Priority Associated Diagnoses Order Schedule Referral to Gastroenterology Outpatient Referral Urgent Hepatomegaly, not elsewhere classified Ordered: 10/20/2023 documented as of this encounter Visit Diagnoses Diagnosis Hepatomegaly, not elsewhere classified documented in this encounter Care Teams Tobacco Grader Relationship Specialty Start Date End Date Angy Ortega APRN [address] [facility] [place] [address] PCP - General 01/27/15 01/03/24 documented as of this encounter
--- OUTSIDE RECORDS SUMMARY | 2024-03-25 16:48 | XMS_ITS | Encounter Summary ---
Author Organization [facility] [place] [address] Care Team Providers Care Doorshaker Name Role Phone Angy Ortega APRN Primary Care Provider [phone] Reason for Referral * Diagnostic Test (Routine) - Closed Specialty Diagnoses / Procedures Referred By Contac t Referred To Contact Radiology Diagnoses Hepatomegaly Procedures MRI Abdomen wwo Contrast (Generic) Gerardo Ramos MD [address] [place] [address] [place] [address] [place] [address] Referral ID Status Reason Start Date Expiration Date V isits Requested Visits Authorized [id number] Closed Specialty Service Requested 09/24/2023 03/25/2025 1 1 Reason for Visit * Diagnostic Test (Routine) - Closed Specialty Diagnoses / Procedures Referred By Contac t Referred To Contact Radiology Diagnoses Hepatomegaly Procedures MRI Abdomen wwo Contrast (Generic) Gerardo Ramos MD [address] [place] [address] [place] [address] [place] [address] Referral ID Status Reason Start Date Expiration Date V isits Requested Visits Authorized [id number] Closed Specialty Service Requested 09/24/2023 03/25/2025 1 1 Encounter Details Date Type Department Care Team (Latest Contact Info) Description 10/15/2023 9:22 AM EDT - 10/15/2023 11:59 PM EDT Hospital [place] [address] Gerardo Ramos MD [address] [place] [address] [place] [address] Hepatomegaly Discharge Disposition: Home Social History Tobacco Use Types Packs/Day Years Used Date Smoking Tobacco: Former Smokeless Tobacco: Current Comments:quit 10 years ago Alcohol Use Standard Drinks/Week Comments Yes 2 (1 standard drink = 0.6 oz pur e alcohol) Sex and Gender Information Value Date Recorded Sex Assigned at Not on file Gender Identity Not on file Sexual Orientation Not on file documented as of this encounter Medications at Time of Discharge Medication Sig Dispensed Refills Start Date End Date albuterol 90 mcg/actuation HFA Aerosol Inhaler Inhale 2 puffs into the lungs every 4 hours as needed for Wheezing. Use with spacer chlorthalidone (HYGROTEN) 25 mg Tablet Take 25 mg by mouth daily. lisinopril (PRINIVIL;ZESTRIL) 10 mg Tablet Take 10 mg by mouth daily. omeprazole (PRILOSEC) 20 mg Capsule, Delayed Release(E.C.) Take 20 mg by mouth daily. gabapentin (NEURONTIN) 600 mg Tablet Take 600 mg by mouth 3 times daily. documented as of this encounter Plan of Treatment Upcoming Encounters Date Type Department Care Team (Late st Contact Info) Description 04/14/2024 10:00 AM EDT Office Visit [place] [address] Tessie Echavarria APRN [facility] [place] [address] documented as of this encounter Procedures Procedure Name Priority Date/Time Associated Diagnosis Comments MRI ABDOMEN WWO CONTRAST Routine 10/15/2023 10:41 AM EDT Hepatomegaly documented in this encounter Results * MRI Abdomen wwo Contrast (Generic) (10/15/2023 10:41 AM EDT) WORKSTATION ID [id number] DH RAD Anatomical Region Laterality Modality Abdomen Magnetic Resonan ce Impressions 10/16/2023 9:36 AM EDT Scattered LiRads 3 lesions, largest 10 mm. LI-RADS Categories: LR-TIV = Tumor in vein LR-5 = Definitely hepatocellular carcinoma (concordant with OPTN 5) LR-4 = Probably hepatocellular carcinoma LR-3 = Intermediate probability for hepatocellular carcinoma LR-2 = Probably benign LR-1 = Definitely benign LR-TR Viable = Treated, probably or definitely viable LR-TR Equivocal = Treated, equivocally viable LR-TR Nonviable = Treated, probably or definitely not viable LR-TR Nonevaluable = Treated, Response not evaluable (due to image omission or degradation) LR-M = Probably or definitely malignant but not HCC specific LR-NC = Not categorizable (due to image omission or degradation) NOTE: LI-RADS categories should be interpreted in the context of other available data, such as biomarkers and the patient's prior probability of developing or having hepatocellular carcinoma. The LI-RADS / OPTN classification of liver lesions has been adopted to standardize CT and MRI scan reporting in patients at risk for hepatocellular carcinoma. The imaging criteria for definite hepatocellular carcinoma are concordant for the LI-RADS and OPTN systems. LI-RADS criteria and documentation are available online at https://www.acr.org/Clinical-Resources/Sbbgwexco-ozg-Xiwt-Systems/LI-RADS. This report utilizes LI-RADS version 2018. Thank you for letting us participate in the care of this patient. ??If you are a health care provider and have any questions regarding this report, please contact the number below. ??For patients who have questions please contact the health child care director that requested your imaging first. ? Narrative 10/16/2023 9:36 AM EDT EXAMINATION: MRI ABDOMEN WWO CONTRAST (GENERIC) CLINICAL HISTORY: 63 y/o male w/ cirrhosis, 2.7 cm max diameter liver lesion on screening u/s R16.0, Hepatomegaly, not elsewhere classified TECHNIQUE: MRI of the abdomen prior to and following the intravenous administration of 17mL of Dotarem using the dynamic liver protocol. COMPARISONS: Limited abdominal ultrasound September 14, 2018. None other available for comparison. FINDINGS: Some motion artifact. Prior hepatic interventions: None. Liver Morphology: Mild contour nodularity. Fatty infiltration. Focal hepatic lesions: Yes Lesion 1: Segment 4A, series 7 image 30 Size: 10mm Enhancement: Hypervascular on late arterial phase images. Washout or pseudocapsule: None Ancillary features: None Change from prior: Not applicable LI-RADS: LR-3 Scattered additional punctate hypervascular lesions have become isointense to surrounding parenchyma in keeping with LiRads 3 lesions. Portal Vein: Patent. Varices: None. Ascites: None. Spleen: Normal size, no lesions. Lower chest: No pleural effusions. Bile ducts: Nondilated. Gallbladder: No gallstones. Normal caliber wall. Pancreas: Normal. Adrenals: Normal. Kidneys: Symmetric nephrograms. Subcentimeter high T2 signal nonenhancing simple renal cortical cysts. Aorta: No aneurysm. Lymph nodes: No enlarged lymph nodes. Bowel: Nondilated, no inflammatory changes. Marrow Signal: No suspicious marrow signal. Procedure Note Janina Valenzuela MD - 10/16/2023 EXAMINATION: MRI ABDOMEN WWO CONTRAST (GENERIC) CLINICAL HISTORY: 63 y/o male w/ cirrhosis, 2.7 cm max diameter liver lesion on screeningu/s R16.0, Hepatomegaly, not elsewhere classified TECHNIQUE: MRI of the abdomen prior to and following the intravenous administration of 17mL of Dotarem using the dynamic liver protocol. COMPARISONS: Limited abdominal ultrasound September 14, 2018. None otheravailable for comparison. FINDINGS: Some motion artifact. Prior hepatic interventions: None. Liver Morphology: Mild contour nodularity. Fatty infiltration. Focal hepatic lesions: Yes Lesion 1: Segment 4A, series 7 image 30 Size: 10mm Enhancement: Hypervascular on late arterial phase images. Washout or pseudocapsule: None Ancillary features: None Change from prior: Not applicable LI-RADS: LR-3 Scattered additional punctate hypervascular lesions have become isointenseto surrounding parenchyma in keeping with LiRads 3 lesions. Portal Vein: Patent. Varices: None. Ascites: None. Spleen: Normal size, no lesions. Lower chest: No pleural effusions. Bile ducts: Nondilated. Gallbladder: No gallstones. Normal caliber wall. Pancreas: Normal. Adrenals: Normal. Kidneys: Symmetric nephrograms. Subcentimeter high T2 signal nonenhancingsimple renal cortical cysts. Aorta: No aneurysm. Lymph nodes: No enlarged lymph nodes. Bowel: Nondilated, no inflammatory changes. Marrow Signal: No suspicious marrow signal. IMPRESSION Scattered LiRads 3 lesions, largest 10 mm. LI-RADS Categories: LR-TIV = Tumor in vein LR-5 = Definitely hepatocellular carcinoma (concordant with OPTN 5) LR-4 = Probably hepatocellular carcinoma LR-3 = Intermediate probability for hepatocellular carcinoma LR-2 = Probably benign LR-1 = Definitely benign LR-TR Viable = Treated, probably or definitely viable LR-TR Equivocal = Treated, equivocally viable LR-TR Nonviable = Treated, probably or definitely not viable LR-TR Nonevaluable = Treated, Response not evaluable (due to imageomission or degradation) LR-M = Probably or definitely malignant but not HCC specific LR-NC = Not categorizable (due to image omission or degradation) NOTE: LI-RADS categories should be interpreted in the context of otheravailable data, such as biomarkers and the patient's prior probability of developingor having hepatocellular carcinoma. The LI-RADS / OPTN classification ofliver lesions has been adopted to standardize CT and MRI scan reporting inpatients at risk for hepatocellular carcinoma. The imaging criteria for definite hepatocellular carcinoma are concordant for the LI-RADS and OPTNsystems. LI-RADS criteria and documentation are available online at https://www.acr.org/Clinical-Resources/Czxgnkbpo-tfz-Thwb-Systems/LI-RADS.This report utilizes LI-RADS version 2018. Thank you for letting us participate in the care of this patient. If youare a health care provider and have any questions regarding this report,please contact the number below. For patients who have questions please contactthe health child care director that requested your imaging first. Gerardo Ramos MD IMG MRI ORDERABLES documented in this encounter Visit Diagnoses Diagnosis Hepatomegaly documented in this encounter Administered Medications Inactive Administered Medications - up to 3 most recent administrations Medication Order MAR Action Action Date Dose Rate Site gadoterate meglumine (Dotarem) (0.5 mMol/mL) injection solution 0-100 mL 0-100 mL, Intravenous, ONCE PRN, 1 dose, Starting on Fri10/15/23 at 1103, Until Fri10/15/23 at 1103, Per Protocol, Radiology Contrast, Routine Given 10/15/2023 11:03 AM EDT 17 mLs documented in this encounter Care Teams Doorshaker Relationship Specialty Start Date End Date Angy Ortega, ANNEMARIE [address] [place] [address] PCP - General 01/27/15 01/03/24 documented as of this encounter
--- OUTSIDE RECORDS SUMMARY | 2024-03-25 16:48 | XMS_ITS | Encounter Summary ---
Author Organization [facility] Address [facility] [place] [address] Care Team Providers Care Supervisor Water Softener Service Name Role Phone Roge Juares Primary Care Provider + Reason for Referral * Consultation (Routine) - Closed Specialty Diagnoses / Procedures Referred By Contcarmen t Referred To Contact Dermatology Diagnoses Prurigo Judi Barnhart PA [address] [place] [address] [facility] Dermatology [address] [place] [address] Referral ID Status Reason Start Date Expiration Date V isits Requested Visits Authorized [id number] Closed Consult, Test & Treat PCP Updated and/or Approved 12/10/2023 12/09/2024 6 6 Encounter Details Date Type Department Care Team (Late st Contact Info) Description 01/04/2024 Transcribe Orders eDH Incoming Referrals [phone] Roge Juares PA [address] [place] [address] [place], [place] [id number] Prurigo Social History Tobacco Use Types Packs/Day Years [...] 10:00 AM EDT Office [place] [address] Tessie Echavarria APRN [facility] [place] [address] Scheduled Referrals Name Type Priority Associated Diagnoses Order Schedule Referral to Dermatology Outpatient Referral Routine Prurigo Ordered: 01/04/2024 documented as of this encounter Visit Diagnoses Diagnosis Prurigo documented in this encounter Care Teams Supervisor Water Softener Service Relationship Specialty Start Date End Date Roge Juares PA [facility] [place] [address] PCP - General Internal Medicine 01/04/24 documented as of this encounter
--- OUTSIDE RECORDS SUMMARY | 2024-03-25 16:48 | XMS_ITS | Clinical Summary ---
Author Organization [facility] Address [facility] [place] [address] Care Team Providers Care Supervisor Mold Yard Name Role Phone Roge Juares Primary Care Provider + Allergies Active Allergy Reactions Criticality Noted Date Comments Codeine 06/12/2018 Penicillins 06/12/2018 Medications Medication Sig Dispensed Refills Start Date End Date Status albuterol 90 mcg/actuation HFA Aerosol Inhaler Inhale 2 puffs into the lungs every 4 hours as needed for Wheezing. Use with spacer Active chlorthalidone (HYGROTEN) 25 mg Tablet Take 25 mg by mouth daily. Active lisinopril (PRINIVIL;ZESTRIL) 10 mg Tablet Take 10 mg by mouth daily. Active omeprazole (PRILOSEC) 20 mg Capsule, Delayed Release(E.C.) Take 20 mg by mouth daily. Active gabapentin (NEURONTIN) 600 mg Tablet Take 600 mg by mouth 3 times daily. Active Active Problems No known active problems Encounters Date Type Department Care Team Description 01/04/2024 Transcribe Orders [facility] Incoming Referrals [phone] Roge Juares PA Prurigo from Last 3 Months Social History Tobacco Use Types Packs/Day Years Used Date Smoking Tobacco: Former Smokeless Tobacco: Current Comments:quit 10 years ago Alcohol Use Standard Drinks/Week Comments Yes 2 (1 standard drink = 0.6 oz pur e alcohol) Sex and Gender Information Value Date Recorded Sex Assigned at Not on file Gender Identity Not on file Sexual Orientation Not on file Last Filed Vital Signs Vital Sign Reading Time Taken Comments Blood Pressure 117/78 09/14/2018 12:00 PM EDT Pulse 92 09/14/2018 10:38 AM EDT Temperature 36.7 ??C (98 ??F) 09/14/2018 10:38 AM EDT Respiratory Rate 12 09/14/2018 12:00 PM EDT Oxygen Saturation 98% 09/14/2018 12:00 PM EDT Inhaled Oxygen Concentration - - Weight 90.3 kg (199 lb) 06/12/2018 10:37 AM EST Height 177.8 cm (5' 10) 06/12/2018 10:37 AM EST Body Mass Index 28.55 06/12/2018 10:37 AM EST Plan of Treatment Upcoming Encounters Date Type Department Care Team (Late st Contact Info) Description 04/14/2024 10:00 AM EDT Office [place] [address] Tessie Echavarria, MANAGER PROGRESSIVE CARE [facility] GASTROENTEROLOGY [place] [address] Health Maintenance Due Date Last Done Comments CT Colonography 1961 Colonoscopy 1961 Colorectal Cancer Screening 1961 FIT DNA 1961 FIT 1961 Sigmoidoscopy (10 year) with FIT yearly 1961 Sigmoidoscopy 1961 HIV screen 1979 Hepatitis C Screening 1979 Lipid Screening 1979 Tetanus/Diphtheria/Pertussis Vaccines (1 - Tdap) 08/17 Zoster vaccine (1 of 2) 2011 Advance Directive 2016 Covid-19 Vaccine (1 - season) 2024 Influenza (Flu) vaccine (1 o f 1 - Influenza standard series) 02/22/2024 Care Teams Supervisor Mold Yard Relationship Specialty Start Date End Date Roge Juares PA [facility] [place] [address] PCP - General Internal Medicine 01/04/24
--- OUTSIDE RECORDS SUMMARY | 2024-03-25 16:49 | XMS_ITS | Encounter Summary ---
Author Organization [facility] [place] [address] Care Team Providers Care Technical Business Systems Analyst Name Role Phone Angy Ortega APRN Primary Care Provider [phone] Encounter Details Date Type Department Care Team (Late st Contact Info) Description 06/26/2018 Ancillary Procedure Radiology Library at [facility] [place] [address] Angy Ortega APRN [address] [place] [address] [place] [address] Social History Tobacco Use Types Packs/Day Years Used Date Smoking Tobacco: Former Smokeless Tobacco: Current Comments:quit 10 years ago Sex and Gender Information Value Date Recorded Sex Assigned at Not on file Gender Identity Not on file Sexual Orientation Not on file documented as of this encounter Plan of Treatment Upcoming Encounters Date Type Department Care Team (Late st Contact Info) Description 04/14/2024 10:00 AM EDT Office Visit Gastroenterology at [facility] [place] [address] Tessie Echavarria APRN [facility] GASTROENTEROLOG[place] [address] documented as of this encounter Procedures Procedure Name Priority Date/Time Associated Diagnosis Comments FILM LIBRARY STORAGE ONLY CT CHEST Routine 06/26/2018 12:00 AM EST documented in this encounter Results * Film Library- Storage Only CT Chest (06/26/2018 12:00 AM EST) Narrative RAD - 06/01/2019 9:24 AM EST This exam is auto-finalizing. It's purpose is for storage only. Angy GAMNIG FILM LIBRARY ORD ERABLES [place], [place] documented in this encounter Visit Diagnoses Not on filedocumented in this encounter Care Teams Technical Business Systems Analyst Relationship Specialty Start Date End Date Angy Ortega APRN [address] [place] [address] PCP - General 01/27/15 01/03/24 documented as of this encounter
--- OUTSIDE RECORDS SUMMARY | 2024-03-25 16:49 | XMS_ITS | Encounter Summary ---
Author Organization [facility] [place] [address] Care Team Providers Care Pillow Cleaner Name Role Phone Angy Ortega APRN Primary Care Provider [phone] Encounter Details Date Type Department Care Team (Late st Contact Info) Description 12/30/2018 Ancillary Procedure Radiology Library at [facility] [place] [address] Angy Ortega APRN [address] [place] [address] [place] [address] Social History Tobacco Use Types Packs/Day Years [...] 10:00 AM EDT Office Visit Gastroenterology at [facility] [place] [address] Tessie Echavarria APRN [facility] [place] [address] documented as of this encounter Procedures Procedure Name Priority Date/Time Associated Diagnosis Comments FILM LIBRARY STORAGE ONLY CT CHEST Routine 12/30/2018 12:00 AM EDT documented in this encounter Results * Film Library- Storage Only CT Chest (12/30/2018 12:00 AM EDT) Narrative DIDIER CANDELARIO - 06/01/2019 9:29 AM EST This exam is auto-finalizing. It's purpose is for storage only. Angy Ortega APRN IMG FILM LIBRARY ORD ERABLES Performing Organization Address City/State/[facility] Co de Phone Number [place], [place] documented in this encounter Visit Diagnoses Not on filedocumented in this encounter Care Teams Pillow Cleaner Relationship Specialty Start Date End Date Angy Ortega APRN [address] [place] [address] PCP - General 01/27/15 01/03/24 documented as of this encounter
--- OUTSIDE RECORDS SUMMARY | 2024-03-25 16:49 | XMS_ITS | Encounter Summary ---
Author Organization [facility] [place] [address] Care Team Providers Care Grocery Store Courtesy Clerk Name Role Phone Angy Ortega APRN Primary Care Provider Encounter Details Date Type Department Care Team (Late st Contact Info) Description 08/13/2018 Telephone [place] [address] Judy Pedroza Social History Tobacco Use Types Packs/Day Years [...] 10:00 AM EDT Office [place] [address] Tessie Echavarria APRN [facility] [place] [address] documented as of this encounter Visit Diagnoses Not on filedocumented in this encounter Care Teams Grocery Store Courtesy Clerk Relationship Specialty Start Date End Date Angy Ortega APRN [address] [place] [address] PCP - General 01/27/15 01/03/24 documented as of this encounter
--- OUTSIDE RECORDS SUMMARY | 2024-03-25 16:49 | XMS_ITS | Encounter Summary ---
Author Organization [facility] [place] [address] Care Team Providers Care Medart Operator Name Role Phone Angy Ortega APRN Primary Care Provider Encounter Details Date Type Department Care Team (Late st Contact Info) Description 05/10/2019 Ancillary Procedure Radiology Library at [facility] [place] [address] Angy Ortega APRN [address] [place] [address] [place] [address] Social History Tobacco Use Types Packs/Day Years [...] 10:00 AM EDT Office Visit Gastroenterology at [facility] [place] [address] Tessie Echavarria APRN [facility] GASTRO[place] [address] documented as of this encounter Procedures Procedure Name Priority Date/Time Associated Diagnosis Comments FILM LIBRARY STORAGE ONLY CT CHEST Routine 05/10/2019 12:00 AM EST documented in this encounter Results * Film Library- Storage Only CT Chest (05/10/2019 12:00 AM EST) Narrative DIDIER CANDELARIO - 06/01/2019 9:32 AM EST This exam is auto-finalizing. It's purpose is for storage only. Angy Ortega APRN IMG FILM LIBRARY ORD ERABLES [place], [place] documented in this encounter Visit Diagnoses Not on filedocumented in this encounter Care Teams Medart Operator Relationship Specialty Start Date End Date Angy Ortega APRN [address] [place] [address] PCP - General 01/27/15 01/03/24 documented as of this encounter
--- OUTSIDE RECORDS SUMMARY | 2024-03-25 16:49 | XMS_ITS | Encounter Summary ---
Author Organization [facility] [place] [address] Care Team Providers Care Vp Of Product Name Role Phone Angy Ortega APRN Primary Care Provider [phone] Reason for Visit * Consultation (Routine) - Specialty Diagnoses / Procedures Referred By Roopa t Referred To Contact Gastroenterology Diagnoses CIRRHOSIS OF LIVER Gerardo Ramos MD [address] [place] [address] [place] [address] [facility] [address] [place] [address] Referral ID Status Reason Start Date Expiration Date V isits Requested Visits Authorized [id number] Consult, Test & Treat Connection [facility] 05/12/2018 05/12/2019 6 6 Encounter Details Date Type Department Care Team (Late st Contact Info) Description 06/12/2018 9:00 AM EST Office [place] [phone] Kareen Min APRN [facility] [place] [address] Hepatic cirrhosis, unspecified hepatic cirrhosis type, unspecified whether ascites present; Screening for colon cancer Social History Tobacco Use Types Packs/Day Years Used Date Smoking Tobacco: Former Smokeless Tobacco: Current Comments:quit 10 years ago Sex and Gender Information Value Date Recorded Sex Assigned at Not on file Gender Identity Not on file Sexual Orientation Not on file documented as of this encounter Last Filed Vital Signs Vital Sign Reading Time Taken Comments Blood Pressure 124/76 06/12/2018 10:37 AM EST Pulse 82 06/12/2018 10:37 AM EST Temperature - - Respiratory Rate - - Oxygen Saturation - - Inhaled Oxygen Concentration - - Weight 90.3 kg (199 lb) 06/12/2018 10:37 AM EST Height 177.8 cm (5' 10) 06/12/2018 10:37 AM EST Body Mass Index 28.55 06/12/2018 10:37 AM EST documented in this encounter Progress Notes * Kareen Min APRN - 06/12/2018 9:00 AM EST HEPATOLOGY NEW PATIENT CONSULTATION Jeancarlos Hdz 1960 [address] BALER: KAREEN MIN APRN PCP: Angy Ortega APRN Requesting Provider: REASON FOR CONSULTATION Cirrhosis. HISTORY OF PRESENT ILLNESS Jeancarlos Hdz is a 57 y.o. year old male with history of Hepatitis C and ongoing alcohol use with question of cirrhosis. He is referred today for evaluation. He sees Dr. Ramos (GI) in [facility] and recently had his Hepatitis C treated. He was treated with Mavyret for 12 weeks. He states he finished treatment 6 months ago, and his viral load on 03/2018was undetected, indicated SVR. His fibrotest shows F3 fibrosis. He has never had a liver biopsy. He was told he had iron overload. He was getting weekly phlebotomy for 8-10 weeks about a year ago.Currently his ferritin is 17 and iron saturation is very low (6%). He has not required phlebotomy for the past year. He has never had a upper endoscopy. He has never had a colonoscopy, although he states Dr. Ramos has tried to convince him to have one. He drinks about 6 beers/week. He drank more a few years ago and drank heavily. He got multiple DUIs, does not have a license. He has not had HFE testing that he knows of. He has not eaten in past 3 hours. ROS: Constitutional: Generally feeling well. No fatigue, fever, chills, no change in weight >10lbs inlast 6 months Eye: no visual changes ENT: no URI symptoms Cardio: no chest pain, palpitations Resp: no cough, no SOB GI: No blood in stools, no nausea/vomitting. No melena. 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 Ramos in [facility] - H/o heavy alcohol use, decreased 3 years ago, currently 6 beers/week. - Fibrotest: 0.65, F3 - Fibroscan 06/12/18: 20.5 kPa, 11% IQR, 06/05, F4, CAP: 368 - Platelets: 149 - no prior EGD Alcohol use. ?Iron overload. Had phlebotomy weekly for 8 weeks 1 year ago. Unclear if HFE Studies done. Current Ferritin: 17, unclear what prior ferritin was. Hypertension COPD- uses inhaler multiple times/day GERD Restless leg syndrome MEDICATIONS Outpatient Medications Marked as Taking for the 06/12/18 encounter (Office Visit) with Kareen Min APRN Medication Sig Dispense Refill ??? albuterol 90 mcg/actuation HFA Aerosol Inhaler Inhale 2 puffs into the lungs every 4 hours as needed for Wheezing. Use with spacer ??? chlorthalidone (HYGROTEN) 25 mg Tablet Take 25 mg by mouth daily. ??? lisinopril (PRINIVIL;ZESTRIL) 10 mg Tablet Take 10 mg by mouth daily. ??? omeprazole (PRILOSEC) 20 mg Capsule, Delayed Release(E.C.) Take 20 mg by mouth daily. ??? gabapentin (NEURONTIN) 600 mg Tablet Take 600 mg by mouth 3 times daily. ALLERGIES Allergies Allergen Reactions ??? Codeine ??? 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 Alcohol: see HPI, hx of heavy use, currently 6 beers/week Cigarettes: quit 10 years ago. Currently chews tobacco FAMILY HISTORY NO family hx of iron overload. No liver disease. PHYSICAL EXAM Vitals: 06/12/18 1037 BP: 124/76 Pulse: 82 Weight: 90.3 kg (199 lb) Height: 177.8 cm (5' 10) Body mass index is 28.55 kg/m??. Gen: Well appearing, no apparent distress. Skin: no spider angiomata, no palmar erythema, no jaundice. HEENT: Sclerae anicteric, pupils equal, round, react to light. Pharynx unremarkable. Neck is supple, no adenopathy, no thyromegaly. Poor dentition. Chest is clear. Heart: Regular rate and rhythm. Normal S1, S2, no murmurs. Abdomen: Normal bowel sounds; soft, non distended. No obvious hepatosplenomegaly. No evidence of ascites. Extremities: No edema. Neuro: alert and oriented x3, no asterixis or tremor. 04/06/18: HCV RNA: undetected Fibrotest: 0.65, F3 ALT: 33 AST: 30 Alk Phos: 124 Albumin: 3.6 Sodium: 139 Potassium: 3.5 Creatinine: 0.98 Iron: 24 Iron TIBC: 395 Trans sat: 6% Ferritin: 17 Platelets: 149 Hemoglobin: 13.4 Hematocrit: 41.6 INR: 1.0 Non-invasive markers of fibrosis: NAFLD fibrosis score:-0.384 (significant fibrosis indeterminate) FIB-4 Score: 1.963 (significant fibrosis indeterminate) BARD score: 3 (significant fibrosis unlikely) Fibroscan Results: Median kPa: 20.5 kPa Mean IQR: 11% (goal is <30 %) Number of valid measurements: 12 (at least 10 required) Number of invalid measurements: 2 Predicted fibrosis stage: F4 CAP (dB/m): 368 Estimated steatosis grade: 3/3 % hepatocytes affected: >66 % ASSESSMENT/PLAN Jeancarlos Hdz is a 57 y.o. male with cirrhosis due to combination of Hepatitis C and alcohol use. Gilbert not sure that he has true iron overload, as he has responded to phlebotomy so rapidly and his ferritin has been low and he has not required repeat phlebotomy in the past year. I do not have his original iron studies, ferritin or HFE studies, but it is possible that his ferritin was initially elevated due to his alcohol use. His Hepatitis C is now treated, and we discussed that if he can stop drinking alcohol there is a good chance that he can avoid progression of his liver disease. He stateshe will think about quitting within the next 6 months. 1. Cirrhosis. His fibroscan is consistent with cirrhosis, which is also supported by his Fibrotest,borderline low platelets, and long history of Hepatitis C and alcohol abuse. 2. Hepatitis C. Appears to be in SVR with undetected viral load 6 months post treatment. 3. Alcohol use. Has cut down significantly over past 2 years, will work on stopping completely. Mayconsider Naltrexone or acaprosate in the future. 4. Iron overload - as above, I am not sure that he ever had hemochromatosis, however it is reasonable to follow his ferritin and if over 100 to phlebotomize as long as his hemoglobin is over 13. 5. HCC surveillance - He should have imaging of his liver every 6 months given his increased risk of liver cancer. Plan to schedule ultrasound today. 6. Risk of varices. His fibroscan is over 20, and his platelets are borderline low (149), thus he is at risk of having portal hypertension and I would recommend an upper endoscopy. If large varices are seen, he should probably be banded as he may not tolerate a non-selective beta shana because ofhis COPD. We did not discuss this today. 7. Preventative health. He has already been vaccinated to Hepatitis A and B. He agrees to a colonoscopy for colon cancer screening at the time of his EGD. Plan: - Schedule EGD And colonoscopy with anesthesia (airway concerns - COPD, alcohol use) - Schedule Ultrasound for HCC surveillance. - Follow up in 6 months with labs (CMP, CBC, INR, Ferritin), ultrasound and visit. If patient prefers, he can also have his 6 month follow up [address]. Ramos in [facility]. - Encouraged alcohol cessation. Patient will work on quitting in next 6 months. Kareen Min APRN Section of Gastroenterology [place] [address] Copy: [address] / [place] [address] documented in this encounter Procedure Notes * Kareen Min APRN - 06/12/2018 9:00 AM ESTAssociated Order(s): FIBROSCAN Procedure(s): FIBROSCAN Pre-Procedure Diagnose(s): Hepatic cirrhosis, unspecified hepatic cirrhosis type, unspecified whether ascites present [facility] Liver Fibrosis Assessment Report Indication: H/o Hepatitis C, Alcohol use Performed by: KAREEN MIN APRN Procedure: Vibration Controlled Transient Elastography (VCTE) or Fibroscan [place] Protocol: Patient's identity, procedure and site were verified, confirmatory pause performed. Discussed procedure including risks and potential complications. Questions answered. Patient verbalizes understanding and wishes to proceed with Fibroscan assessment. Patient was placed in the supine position with right arm in maximum abduction to allow optimal exposure of right lateral abdomen. Patient was briefly assessed. Testing was performed in the mid-axillary location. 50Hz Shear Wave pulses were applied and the resulting Shear Wave and Propagation Speed was detected with a 3.5MHz ultrasonic signal, using the Fibroscan probe. Skin to liver capsule distance and liver parenchyma were accessed during the entire examination with the Fibroscan probe. Patient was instructed to breathe normally and abstain from sudden movements during the procedure. At least ten Sheer Waves were produced; individual measurements of each Shear Wave were calculated. Patient tolerated the procedure well with no complications. Fibroscan Results: Median kPa: 20.5 kPa Mean IQR: 11% (goal is <30 %) Number of valid measurements: 12 (at least 10 required) Number of invalid measurements: 2 Predicted fibrosis stage: F4 CAP (dB/m): 368 Estimated steatosis grade: 3/3 % hepatocytes affected: >66 % Interpretation: Based on this Fibroscan result, history, clinical examination and review of laboratory and radiological data, this patient likely has stage 4 liver fibrosis. He has cirrhosis. documented in this encounter Plan of Treatment Upcoming Encounters Date Type Department Care Team (Late st Contact Info) Description 04/14/2024 10:00 AM EDT Office [place] [address] Tessie Echavarria APRN [facility] [place] [address] Scheduled Orders Name Type Priority Associated Diagnoses Orde r Schedule UPPER GI ENDOSCOPY Procedures Routine Hepatic cirrhosis, unspecified hepatic cirrhosis type, unspecified whether ascites present Ordered: 06/12/2018 COLONOSCOPY Procedures Routine Screening for colon cancer Ordered: 06/12/2018 documented as of this encounter Procedures Procedure Name Priority Date/Time Associated Diagnosis Comments [id number] Routine 06/12/2018 9:00 AM EST Hepatic cirrhosis, unspecified hepatic cirrhosis type, unspecified whether ascites present documented in this encounter Results * US Abdomen Limited (09/14/2018 9:14 AM EDT) Anatomical Region Laterality Modality Abdomen Ultrasound 09/14/2018 9:15 AM EDT Impressions 09/14/2018 9:30 AM EDT 1. ??Mildly coarse liver parenchyma, consistent with history of cirrhosis. No sonographically evident hepatic mass. 2. ??No ascites in the imaged right upper quadrant. Thank you for letting us participate in the care of this patient. For questions regarding this report, please contact the number below. Electronically signed by: Nat Torres [facility] ([phone]), at 09/14/2018 9:22 AM ?Nat Torres, Staff Physician Electronically Signed Final Report ?? 09/14/2018 09:30 am Narrative 09/14/2018 9:30 AM EDT Abdominal ? (Signed Final 09/14/2018 09:30 am) PATIENT INFO: ID #: ? [id number] ?: ??[birth year] (58 yrs) Name: ? JEANCARLOS HDZ ?Visit Date: 09/14/2018 09:15 am PERFORMED BY: Performed By: ? Thaddeus Chauhan RDMS Attending: ?Melissa NASSAR, Nat Ring Resident: ? Deborah NASSAR, Onofre Gerardo Referred By: ?KAREEN MIN Location: ? [place] SERVICE(S) PROVIDED: ??UABDLIM - Abdominal Limited Survey Single ? [id number] ??Organ or Quadrant - [id number] INDICATIONS: ??Cirrhosis, screening for HCC. No history of ??prior lesions. COMPARISON: Outside institution complete abdominal ultrasound 04/07/17 ------ LIVER: ------ Right Lobe Length: ?? 17.1 ?? cm Echogenicity/Echotexture: ?? Mildly coarse parenchyma Comment: ?No focal lesion seen. ??No appreciable capsular ? nodularity imaging with curve transducer. GALLBLADDER: Cholelithiasis: ?No stones visualized Wall Thickness: ?Normal wall thickness Focal Tenderness: ?Negative sonographic Laird's sign BILIARY TRACT: Intrahepatic Ducts: ?? Normal Extrahepatic Ducts: ?? Normal where seen Common Duct Size: ? 3.0 ? mm --------- PANCREAS: --------- Head: ? Poorly visualized due to overlying bowel Tail: ? Poorly visualized due to overlying bowel Body: ? Normal RIGHT KIDNEY: Size (cm) ?L: ??10.8 Cortical Thickness: ?Normal Cortical Echogenicity: ?? Normal Hydronephrosis: ?No sonographic evidence ------ AORTA: ------ Measurements (cm): Proximal ? AP: ?? 2.3 Comment: ?Normal in caliber where visualized. ---- IVC: ---- Normal in caliber where visualized. FLUID COLLECTIONS: No ascites in the imaged RUQ. Procedure Note Nat Torres MD - 09/14/2018 Abdominal (Signed Final 09/14/2018 09:30 am) PATIENT INFO: ID #: [id number] : 62 (58 yrs) Name: JEANCARLOS HDZ Visit Date: 09/14/2018 09:15 am PERFORMED BY: Performed By: Thaddeus Chauhan RDMS Attending: Nat Torres MD Resident: Onofre Cabrera MD Referred By: KAREEN MIN Location: [place] SERVICE(S) PROVIDED: UABDLIM - Abdominal Limited Survey Single [id number] Organ or Quadrant - [id number] INDICATIONS: Cirrhosis, screening for HCC. No history of prior lesions. COMPARISON: Outside institution complete abdominal ultrasound 04/07/17 ------ LIVER: ------ Right Lobe Length: 17.1 cm Echogenicity/Echotexture: Mildly coarse parenchyma Comment: No focal lesion seen. No appreciable capsular nodularity imaging with curve transducer. GALLBLADDER: Cholelithiasis: No stones visualized Wall Thickness: Normal wall thickness Focal Tenderness: Negative sonographic Laird's sign BILIARY TRACT: Intrahepatic Ducts: Normal Extrahepatic Ducts: Normal where seen Common Duct Size: 3.0 mm --------- PANCREAS: --------- Head: Poorly visualized due to overlying bowel Tail: Poorly visualized due to overlying bowel Body: Normal RIGHT KIDNEY: Size (cm) L: 10.8 Cortical Thickness: Normal Cortical Echogenicity: Normal Hydronephrosis: No sonographic evidence ------ AORTA: ------ Measurements (cm): Proximal AP: 2.3 Comment: Normal in caliber where visualized. ---- IVC: ---- Normal in caliber where visualized. FLUID COLLECTIONS: No ascites in the imaged RUQ. IMPRESSION 1. Mildly coarse liver parenchyma, consistent with history of cirrhosis. No sonographically evident hepatic mass. 2. No ascites in the imaged right upper quadrant. Thank you for letting us participate in the care of this patient. For questions regarding this report, please contact the number below. Electronically signed by: Nat Torres, [facility] ([phone]), at 09/14/2018 9:22 AM Nat Torres, Staff Physician Electronically Signed Final Report 09/14/2018 09:30 am Kareen Min APRN [facility] [place] GEN ORDERAB LES * [id number] (06/12/2018 9:00 AM EST) Narrative Kareen Min APRN - 06/12/2018 9:00 AM EST Kareen Min APRN ? 06/12/2018 12:04 PM [facility] Liver Fibrosis Assessment Report Indication: ??H/o Hepatitis C, Alcohol use Performed by: ??KAREEN MIN APRN Procedure: Vibration Controlled Transient Elastography (VCTE) or Fibroscan [place] Protocol: Patient's identity, procedure and site were verified, confirmatory pause performed. Discussed procedure including risks and potential complications. Questions answered. Patient verbalizes understanding and wishes to proceed with Fibroscan assessment. Patient was placed in the supine position with right arm in maximum abduction to allow optimal exposure of right lateral abdomen. Patient was briefly assessed. Testing was performed in the mid-axillary location. 50Hz Shear Wave pulses were applied and the resulting Shear Wave and Propagation Speed was detected with a 3.5MHz ultrasonic signal, using the Fibroscan probe. Skin to liver capsule distance and liver parenchyma were accessed during the entire examination with the Fibroscan probe. Patient was instructed to breathe normally and abstain from sudden movements during the procedure. At least ten Sheer Waves were produced; individual measurements of each Shear Wave were calculated. Patient tolerated the procedure well with no complications. Fibroscan Results: Median kPa: 20.5 kPa Mean IQR: 11% (goal is <30 %) Number of valid measurements: 12 (at least 10 required) Number of invalid measurements: 2 Predicted fibrosis stage: F4 CAP (dB/m): 368 Estimated steatosis grade: 3/3 % hepatocytes affected: >66 ??% Interpretation: Based on this Fibroscan result, history, clinical examination and review of laboratory and radiological data, this patient likely has stage 4 liver fibrosis. He has cirrhosis. Kareen Min APRN PROCEDURE/MINOR LAM RGICAL ORDERABLES documented in this encounter Visit Diagnoses Diagnosis Hepatic cirrhosis, unspecified hepatic cirrhosis type, unspecified whether ascites present Screening for colon cancer Special screening for malignant neoplasms, colon Hepatic cirrhosis, unspecified hepatic cirrhosis type, unspecified whether ascites present documented in this encounter Care Teams Vp Of Product Relationship Specialty Start Date End Date Angy Ortega APRN [address] [place] [address] PCP - General 01/27/15 01/03/24 documented as of this encounter
--- OUTSIDE RECORDS SUMMARY | 2024-03-25 16:49 | XMS_ITS | Encounter Summary ---
Author Organization [facility] [place] [address] Care Team Providers Care Speech And Language Clinician Name Role Phone Emilie Vivas APRN Primary Care Provider [phone] Encounter Details Date Type Department Care Team (Late st Contact Info) Description 12/13/2013 [place] [address] Emilie Vivas, ANNEMARIE [facility] [address] [place] [address] Social History Tobacco Use Types Packs/Day Years Used Date Smoking Tobacco: Never Assessed Sex and Gender Information Value Date Recorded Sex Assigned at Not on file Gender Identity Not on file Sexual Orientation Not on file documented as of this encounter Plan of Treatment Upcoming Encounters Date Type Department Care Team (Late st Contact Info) Description 04/14/2024 10:00 AM EDT Office [place] [address] Tessie Echavarria APRN [facility] [place] [address] documented as of this encounter Procedures Procedure Name Priority Date/Time Associated Diagnosis Comments FILM LIBRARY STORAGE ONLY CT ABDOMEN AND PELVIS Routine 12/13/2013 10:31 AM EDT documented in this encounter Results * Film Library- Storage only CT abdomen & pelvis (12/13/2013 10:31 AM EDT) Anatomical Region Laterality Modality Abdomen, Pelvis Other 12/13/2013 10:3 1 AM EDT Narrative 12/27/2013 10:36 AM EDT This is a Non-reportable exam Procedure Note 12/27/2013 This is a Non-reportable exam Emilie Vivas APRN IM FILM LIBRARY O RDERABLES documented in this encounter Visit Diagnoses Not on filedocumented in this encounter Care Teams Speech And Language Clinician Relationship Specialty Start Date End Date Emilie Vivas APRN [facility] [address] [place] [address] PCP - General 12/27/13 01/26/15 documented as of this encounter
--- OUTSIDE RECORDS SUMMARY | 2024-03-25 16:49 | XMS_ITS | Encounter Summary ---
Author Organization [facility] Address [facility] [place] [address] Care Team Providers Care Weight Trainer Name Role Phone ShannonAngy ANNEMARIE Primary Care Provider Encounter Details Date Type Department Care Team (Latest Contact Info) Description 09/14/2018 9:32 AM EDT - 09/14/2018 12:25 PM EDT Hospital [place] [address] Brigid Demarco MD [facility] [place] [address] Discharge Disposition: Home Social History Tobacco Use [...] EDT Inhaled Oxygen Concentration - - Weight - - Height - - Body Mass Index - - documented in this encounter Discharge Instructions * Discharge Instructions* Mine Castro RN - 09/14/2018 12:05 PM EDT UPPER GI ENDOSCOPY WHAT TO EXPECT AFTER THE PROCEDURE After the test you may feel a little more gassy or bloated than usual, this is normal. ACTIVITY Because of the sedation that you received Your judgement and reaction time are affected ?? Go home and rest quietly for the remainder of the day. You may resume your normal activities tomorrow. ?? Change from one position to the next slowly. You may lose your balance unexpectedly Be careful on stairs, as you may be unsteady on your feet. FOR THE NEXT 24 HRS ?? DO NOT DRIVE OR OPERATE ANY MACHINERY ?? DO NOT DRINK ALCOHOLIC BEVERAGES ?? DO NOT SIGN LEGAL DOCUMENTS ?? If you are a smoker: DO NOT SMOKE WHILE YOU ARE ALONE Diet ?? Start by eating small portions of foods that ordinarily will not upset your stomach. Be gentle with what you choose to start with. ?? Drink plenty of fluids ( unless otherwise told not to) Medications You may have a mild sore throat. Ice chips, popsicles, over the counter throat lozenges or spray may help numb your throat. This procedure should not cause a fever. IV SITE-- slight redness or tenderness is normal, you can use warm compresses if you get concerned.If the tenderness +/or redness increases or foul drainage and a red streak occurs, please contact your PCP immediately. WHEN SHOULD YOU CALL FOR HELP? Call 911 anytime you think that you need emergency care. For example, call if: You passed out (lost consciousness). You cough up blood. You vomit blood or what looks like coffee grounds. You pass maroon or very bloody stools. Call your healthcare provider or seek immediate medical attention if: You have trouble swallowing. You have belly pain. Your stools are black or tarlike or have streaks of blood. You are sick to your stomach or cannot keep fluids down. Watch closely for changes in your health, and be sure to contact your doctor IF Your throat still hurts after a day or two You do not get better as expected. Friday-Friday Same Day Endo [phone] 7a-8p Otherwise contact [phone] and ask to speak to the photo cartographer railroad commissioner Follow-up care is a whitfield part of your treatment and safety. Be sure to make and go to all appointments, and call your doctor if you are having problems. Instructions have been reviewed and patient expresses understanding documented in this encounter Medications at Time of Discharge [...] times daily. documented as of this encounter H&P Notes * Brigid Demarco MD - 09/14/2018 10:55 AM EDT Gastroenterology and Hepatology Pre-Procedure History and Physical Exam Procedure: EGD: Indication: screen for varices, cirrhosis There is no problem list on file for this patient. EXAM: HEENT: Airway examined, oropharynx clear Mallampati Score: II (soft palate, uvula, fauces visible) LUNGS: Clear to auscultation HEART: Regular rate and rhythm, normal S1, S2 ABDOMEN: Normal bowel sounds, soft, non tender, non distended, A/P Proceed with the planned endoscopic procedure. ASA 3 - Patient with moderate systemic disease with functional limitations Sedation Plan: anesthesia Risks and benefits of the procedure explained to the patient. Consent signed. documented in this encounter Plan of Treatment Upcoming Encounters Date Type Department Care Team (Late st Contact Info) Description 04/14/2024 10:00 AM EDT Office [place] [address] Tessie Echavarria APRN [facility] [place] [address] documented as of this encounter Procedures Procedure Name Priority Date/Time Associated Diagnosis Comments EGD, UPPER GI ENDOSCOPY (WRVU 2.09) 09/14/2018 11:36 AM EDT Hepatic cirrhosis, unspecified hepatic cirrhosis type, unspecified whether ascites present Screening for colon cancer UPPER GI ENDOSCOPY Routine 09/14/2018 11 :33 AM EDT documented in this encounter Results * UPPER GI ENDOSCOPY (09/14/2018 11:33 AM EDT) UPPER GI ENDOSCOPY [facility] Endoscopy Procedure Date: 09/14/2018 11:33 AM ? Patient Name: Jeffrey Moseley ? Date of : 1960 ? Age: 58 ? Order #: [id number] ? Instrument Name: [id number] ? Procedure: ? Upper GI endoscopy Indications: ? Cirrhosis with suspected esophageal ? varices Providers: ? Brigid Demarco MD, Janett Story RN, ? Geovanni Stanley MD: ?Angy Ortega MD Medicines: ? Propofol per Anesthesia Complications: ? No immediate complications. Procedure: ? Pre-Anesthesia Assessment: ? - Prior to the procedure, a History ? and Physical was performed, and ? patient medications, allergies and ? sensitivities were reviewed. The ? patient's tolerance of previous ? anesthesia was reviewed. ? - The risks and benefits of the ? procedure and the sedation options ? and risks were discussed with the ? patient. All questions were answered ? and informed consent was obtained. ? The procedure, indications, benefits, ? risks and alternatives were explained ? to the patient. Specifically ? discussed were potential ? complications including, but not ? limited to, bleeding, perforation, ? infection, missing a cancer, and ? adverse medication reactions. The ? Endoscope was introduced through the ? mouth, and advanced to the third part ? of duodenum. The patient tolerated ? the procedure well. The upper GI ? endoscopy was accomplished without ? difficulty. The patient tolerated the ? procedure well. ? Findings: ? The examined esophagus was normal. No varices were ? seen. ? The entire examined stomach was normal. ? The examined duodenum was normal. ? Moderate Sedation: ? Not applicable - See Anesthesia documentation Impression: ?- Normal esophagus. ? - Normal stomach. ? - Normal examined duodenum. ? - No specimens collected. Recommendation: ?Follow up in clinic as planned to ? decide timing of next endoscopy. ? Repeat fibroscan and platelet count ? in one year to decide if repeat ? endoscopy needed in 2 years. ? Attending Participation: ? I personally performed the entire procedure. ? I was present during the intraservice time as ? documented by the sedation RN. ? Brigid Demarco MD 09/14/2018 11:47:47 AM This report has been signed electronically. Number of Addenda: 0 Note Initiated On: 09/14/2018 11:33 AM PROVATION 09/14/2018 11:3 3 AM EDT Angy Ortega APRN GENERAL SURGICAL ORD ERABLES PROVATION documented in this encounter Visit Diagnoses Not on filedocumented in this encounter Administered Medications Inactive Administered Medications - up to 3 most recent administrations Medication Order MAR Action Action Date Dose Rate Site lactated ringers infusion 100 mL/hr, Intravenous, CONTINUOUS, Starting on Fri09/14/18 at 1045, Until Fri09/14/18 at 1223, Endoscopy (Day of Procedure) New Bag 09/14/2018 10:28 AM EDT 100 mL/hr 100 mL/hr documented in this encounter Active and Recently Administered Medications Times are shown in EDT. Continuous Medication Order 09/12/2018 09/13/2018 09/14/2018 lactated ringers infusion (CANCELED) 100 mL/hr, Intravenous, CONTINUOUS, Starting on Fri09/14/18 at 1045, Until Fri09/14/18 at 1223, Endoscopy (Day of Procedure) 1028 (New Bag - Prov ider: Elisha Wakefield RN)1136 (Anesthesia Volume Adjustment - Provider: Gabriel Solis CRNA - Comment: recieved in pre-op)1147 (Stopped - Provider: Gabriel Solis CRNA) documented in this encounter Care Teams Weight Trainer Relationship Specialty Start Date End Date Angy Ortega APRN [address] [place] [address] PCP - General 01/27/15 01/03/24 documented as of this encounter
--- OUTSIDE RECORDS SUMMARY | 2024-03-25 16:49 | XMS_ITS | Encounter Summary ---
Author Organization [facility] [place] [address] Care Team Providers Care Filter Tank Tender Helper Head Name Role Phone Angy Ortega APRN Primary Care Provider [phone] Encounter Details Date Type Department Care Team (Late st Contact Info) Description 08/13/2018 Telephone [place] [phone] Judy Pedroza Social History Tobacco Use Types Packs/Day Years Used Date Smoking Tobacco: Former Smokeless Tobacco: Current Comments:quit 10 years ago Sex and Gender Information Value Date Recorded Sex Assigned at Not on file Gender Identity Not on file Sexual Orientation Not on file documented as of this encounter Miscellaneous Notes * Telephone Encounter - Judy Pedroza - 08/13/2018 8:43 AM EST Jeffrey Moseley [id number] Diagnosis: Anesthesia- Ultrasound s.day prior 1. Have you ever had a colonoscopy/EGD before? [x] YES [] NO If Yes, Date of Last Senatobia: If yes, did you have any problems with the procedure? [] YES [] NO Explain: What type of sedation was used: 2. Do you take any Blood Thinners? [] YES [x] NO If Yes, type: 3. Do you have a Pacemaker or Defibrillator device? [] YES [x] NO If Yes send inDrivenBI message to [facility] DEVICE CHECK 4. Are you a diabetic? [] YES [x] NO If yes, controlled by meds or diet? 5. Do you have any Allergies to Eggs, Latex or Medications? Listed in chart [x] YES [] NO If Yes, what: 6. Do you take any Oral Iron Supplements (Including multi vitamins)? [] YES [x] NO 7. Do you have a history of three or more abdominal surgeries? [] YES [x] NO 8. Have you had a problem with sedation or anesthesia? [] YES [x] NO 9. Do you have a c-pap machine or oxygen tank? [] C-PAP [] Oxygen [x] NO 10. Do you take prescription narcotic pain medications? [] YES [x] NO 11. You must have a responsible alliance party stay at the facility during your procedure and drive you home? [x] YES 12. Is there any other information you would like to give us to aid in scheduling? Height: 5'10 Weight:___199 BMI: ____ Age:57 y.o. documented in this encounter Plan of Treatment Upcoming Encounters Date Type Department Care Team (Late st Contact Info) Description 04/14/2024 10:00 AM EDT Office [place] [address] Tessie Echavarria, PARTS IDENTIFICATION TECHNICIAN [facility] [place] [address] documented as of this encounter Visit Diagnoses Not on filedocumented in this encounter Care Teams Filter Tank Tender Helper Head Relationship Specialty Start Date End Date Angy Ortega APRN [address] [place] [address] PCP - General 01/27/15 01/03/24 documented as of this encounter
--- OUTSIDE RECORDS SUMMARY | 2024-03-25 16:49 | XMS_ITS | Encounter Summary ---
Author Organization [facility] [place] [address] Care Team Providers Care Field Contractor Name Role Phone Emilie Vivas APRN Primary Care Provider [phone] Encounter Details Date Type Department Care Team (Late st Contact Info) Description 12/13/2013 [place] [address] Emilie Vivas, EGG PASTEURIZER [facility] [address] [place] [address] Social History Tobacco Use Types Packs/Day Years [...] 10:00 AM EDT Office [place] [address] Tessie Echavarria APRN [facility] [place] [address] documented as of this encounter Procedures Procedure Name Priority Date/Time Associated Diagnosis Comments FILM LIBRARY STORAGE ONLY DX CHEST Routine 12/13/2013 10:29 AM EDT documented in this encounter Results * Film Library- Storage only DX Chest (12/13/2013 10:29 AM EDT) Anatomical Region Laterality Modality Other 12/13/2013 10:2 9 AM EDT Narrative 12/27/2013 10:34 AM EDT This is a Non-reportable exam Procedure Note 12/27/2013 This is a Non-reportable exam Emilie Vivas APRN IM FILM LIBRARY O RDERABLES documented in this encounter Visit Diagnoses Not on filedocumented in this encounter Care Teams Field Contractor Relationship Specialty Start Date End Date Emilie Vivas APRN [facility] [address] [place] [address] PCP - General 12/27/13 01/26/15 documented as of this encounter
--- OUTSIDE RECORDS SUMMARY | 2024-03-25 16:49 | XMS_ITS | Encounter Summary ---
Author Organization [facility] [place] [address] Care Team Providers Care Tribal Council Member Name Role Phone JanAngy goins ANNEMARIE Primary Care Provider Encounter Details Date Type Department Care Team (Late st Contact Info) Description 09/14/2018 11:15 AM EDT - 09/14/2018 11:45 AM EDT [place] [phone] Brigid Demarco MD [facility] [place] [address] EGD, UPPER GI ENDOSCOPY (WRVU 2.09) Social History Tobacco Use Types Packs/Day Years [...] Sign Reading Time Taken Comments Blood Pressure 118/78 09/14/2018 10:38 AM EDT Pulse 92 09/14/2018 10:38 AM EDT Temperature 36.7 ??C (98 ??F) 09/14/2018 10:38 AM EDT Respiratory Rate 15 09/14/2018 10:38 AM EDT Oxygen Saturation 97% 09/14/2018 10:38 AM EDT Inhaled Oxygen Concentration - - Weight [...] better as expected. Friday-Friday Same Day Endo [phone] 7a-8p Otherwise contact [phone] and ask to speak to the superintendent concrete mixing plant sculpture conservator Follow-up care is a whitfield part of [...] 10:00 AM EDT Office [place] [address] Tessie Echavarria, OFFICE MESSENGER HELPER [facility] [place] [address] [phone] (work) documented as of this encounter Procedures Procedure Name Priority Date/Time Associated Diagnosis Comments EGD, UPPER GI ENDOSCOPY (WRVU 2.09) 09/14/2018 11:36 AM EDT Hepatic cirrhosis, unspecified hepatic cirrhosis type, unspecified whether ascites present Screening for colon cancer UPPER GI ENDOSCOPY Routine 09/14/2018 11 :33 AM EDT documented in this encounter Results * UPPER GI ENDOSCOPY (09/14/2018 11:33 AM EDT) [facility] UPPER GI ENDOSCOPY [facility] Endoscopy Procedure Date: 09/14/2018 11:33 AM ? Patient Name: Jeffrey Moseley ? Date of : 1960 ? Age: 58 ? Order #: [id number] ? Instrument Name: [id number] ? Procedure: ? Upper GI endoscopy Indications: ? Cirrhosis with suspected esophageal ? varices Providers: ? Brigid Demarco MD, Janett Story RN, ? Geovanni Davidson Referring : ?Angy Ortega MD Medicines: ? Propofol per [...] PROVATION documented in this encounter Visit Diagnoses Diagnosis Hepatic cirrhosis, unspecified hepatic cirrhosis type, unspecified whether ascites present Screening for colon cancer Special screening for malignant neoplasms, colon documented in this encounter Administered Medications Inactive [...] CRNA) documented in this encounter Care Teams Tribal Council Member Relationship Specialty Start Date End Date Angy Ortega APRN [address] [place] [address] PCP - General 01/27/15 01/03/24 documented as of this encounter
--- OUTSIDE RECORDS SUMMARY | 2024-03-25 16:49 | XMS_ITS | Encounter Summary ---
Author Organization [facility] Address [facility] [place] [address] Care Team Providers Care Director Targeted Marketing Name Role Phone Angy Ortega HAIR MACHINE OPERATOR Primary Care Provider [phone] Encounter Details Date Type Department Care Team (Late st Contact Info) Description 09/14/2018 11:36 AM EDT Anesthesia [place] [address] Aura Tinsley MD [facility] [place] [address] Gabriel Solis CRNA [facility] [place] [address] Anesthesia Record Procedure Summary Procedure Name Responsible Anesthesiologist Anesthesia Start Time Anesthesia Stop Time EGD, UPPER GI ENDOSCOPY (WRVU 2.09) (Trunk) Aura Tinsley MD 09/14/18 1136 09/14/18 1148 Events Date Time Event Comment 09/14/2018 1136 AN Verify 1136 Start 1136 An Start Data 1137 1139 An Induction 1140 Anesthesia Ready 1148 an stop data 1148 Recovery or ICU Handoff Mariana ent care was transferred to the destination unit staff after review of the patient's medical history, current anesthetic/surgical status and plan, according to the Provider Handoff Checklist. 1148 Stop Meds Name Total IV Lidocaine 100 mg Propofol 100 mg Propofol INF 90.3 mg lactated ringers infusion 600 mL * Agents Name O2 Air N2O O2 Auxiliary Flowmeter 1 * Blood No blood administrations on file. Lines, Drains, and Airways Type Details Placement Removal (RETIRED) Peripheral IV Line - Single Lumen 09/14/18; 1028; metacarpal vein (top of hand), right; [id number] catheter system; 22 gauge; distraction; 09/14/18; 1222 09/14/18 1028 by Elisha Wakefield RN 09/14/18 1222 by Mine Castro RN documented in this encounter Social History Tobacco Use Types Packs/Day Years Used Date Smoking Tobacco: Former Smokeless Tobacco: Current Comments:quit 10 years ago Alcohol Use Standard Drinks/Week Comments Yes 2 (1 standard drink = 0.6 oz pur e alcohol) Sex and Gender Information Value Date Recorded Sex Assigned at Not on file Gender Identity Not on file Sexual Orientation Not on file documented as of this encounter OR Notes * Anesthesia Postprocedure Evaluation - Aura Tinsley MD - 09/14/2018 11:58 AM EDT [facility] Department of Anesthesiology Post-procedure Note Patient: Jeffrey Moseley Procedure Summary Date: 09/14/18 Room / Location: [facility] ENDO 5 / [facility] ENDOSCOPY Anesthesia Start: 1136 Anesthesia Stop: 1148 Procedure: EGD, UPPER GI ENDOSCOPY (N/A Trunk) Diagnosis: Hepatic cirrhosis, unspecified hepatic cirrhosis type, unspecified whether ascites present Screening for colon cancer (cirrhosis, screening for varices) ([facility] s.day prior- 9:00am) ((consult)) Surgeon: Brigid Demarco MD Responsible Provider: Aura Tinsley MD Anesthesia Type: MAC ASA Status: 2 All Anesthesia Providers: Anesthesiologist: Aura Tinsley MD QUALITY CONTROL COORDINATOR: Gabriel Solis CRNA Vitals Value Taken Time BP Temp Pulse Resp SpO2 96 % 09/14/2018 11:57 AM Pain Level Vitals shown include unvalidated device data. Patient Location: PACU/[facility] Level of Consciousness: Awake and Alert Pain Management: Satisfactory Analgesia PONV: None Cardiovascular Status: At Baseline Respiratory Status: At Baseline Postoperative Fluid Status: Intravascular EUvolemia Possible Anesthetic Complications: NONE apparent at time of evaluation Final Primary Anesthesia Type: MAC (The anesthetic type performed was the same as planned.) Comments: * Anesthesia Preprocedure Evaluation - Aura Tinsley MD - 09/14/2018 11:23 AM EDT Pre-Anesthesia Evaluation for: Jeffrey Moseley a 58 y.o. male. Procedure(s): EGD, UPPER GI ENDOSCOPY There are no active problems to display for this patient. No past medical history on file. No past surgical history on file. Social History Tobacco Use ??? Smoking status: Former Smoker ??? Smokeless tobacco: Current User ??? Tobacco comment: quit 10 years ago Substance Use Topics ??? Alcohol use: Yes Alcohol/week: 1.2 oz Types: 2 Cans of beer per week Social History Substance and Sexual Activity Drug Use Yes ??? Frequency: 7.0 times per week ??? Types: Marijuana Comment: daily Allergies Allergen Reactions ??? Codeine ??? Penicillins Medications: MAR and/or home medications have been reviewed. Physical Exam: Most Recent Vitals: 09/14/18 1038 BP: 118/78 Pulse: 92 Resp: 15 Temp: 36.7 ??C (98 ??F) SpO2: 97% There is no height or weight on file to calculate BMI. Airway Assessment: Mallampati: II TM distance: >3 FB Neck ROM: full Cardiovascular Assessment: Rhythm: regular Pulmonary Assessment: breath sounds clear to auscultation Dental Assessment: Misc Assessment: Anesthesia Plan: ASA 2 MAC, with a(n) intravenous induction 58 y/o here for EGD, for cirrhosis, screening for varices PMH: asthma, as above, smoker MJ, COPD, no home oxygen, quit EtOh and quit tobacco, chronic gabapentin PSH: shoulder 1978, no problems Plan : sedation The patient was informed of the risks of anesthesia, and consent was obtained. These risks include,but are not limited to, PONV, pain, intraop awareness (expected), conversion to general anesthesia,and other rare but serious complications such as major organ damage, allergies, blood transfusions,and dental/lip trauma. Region - Other Informed Consent: Anesthetic plan and risks discussed with patient. Plan discussed with QUALITY CONTROL COORDINATOR. PAT Clinic Note documented in this encounter Plan of Treatment Upcoming Encounters Date Type Department Care Team (Late st Contact Info) Description 04/14/2024 10:00 AM EDT Office [place] [address] Tessie Echavarria APRN [facility] [place] [address] documented as of this encounter Visit Diagnoses Not on filedocumented in this encounter Administered Medications Inactive Administered Medications - up to 3 most recent administrations Medication Order MAR Action Action Date Dose Rate Site lidocaine (PF) (XYLOCAINE) 100 mg/5 mL (2 %) injection PRN, Starting on Fri09/14/18 at 1139, Until Fri09/14/18 at 1148, Anesthesia Intra-op, Routine Given 09/14/2018 11:39 AM EDT 100 mg propofol (DIPRIVAN) 10 mg/mL bolus injection (Anesthesia) PRN, Starting on Fri09/14/18 at 1139, Until Fri09/14/18 at 1148, Anesthesia Intra-op Given 09/14/2018 11:41 AM EDT 40 mg Given 09/14/2018 11:39 AM EDT 60 mg propofol (DIPRIVAN) infusion CONTINUOUS PRN, Starting on Fri09/14/18 at 1139, Until Fri09/14/18 at 1148, Anesthesia Intra-op, Routine New Bag 09/14/2018 11:39 AM EDT 200 mcg/kg/min 108.4 mL/hr documented in this encounter Care Teams Director Targeted Marketing Relationship Specialty Start Date End Date Angy Ortega APRN [address] [place] [address] PCP - General 01/27/15 01/03/24 documented as of this encounter
--- OUTSIDE RECORDS SUMMARY | 2024-03-25 16:49 | XMS_ITS | Encounter Summary ---
Author Organization [facility] [place] [address] Care Team Providers Care Behavior Specialist Name Role Phone Angy Ortega APRN Primary Care Provider Encounter Details Date Type Department Care Team (Latest Contact Info) Description 09/14/2018 8:55 AM EDT - 09/14/2018 9:31 AM EDT Hospital [place] [id number] Love Min ASSOCIATE BUSINESS ANALYST [facility] [place] [address] Hepatic cirrhosis, unspecified hepatic cirrhosis type, unspecified whether ascites present Discharge Disposition: Home Social History Tobacco Use [...] EDT Office [place] [address] Tessie Echavarria APRN [facility] [place] [address] documented as of this encounter Procedures Procedure Name Priority Date/Time Associated Diagnosis Comments US ABDOMEN LIMITED Routine 09/14/2018 9: 14 AM EDT Hepatic cirrhosis, unspecified hepatic cirrhosis [...] this report, please contact the number below. ?Nat Torres, Staff Physician Electronically Signed Final Report ?? 09/14/2018 09:30 am Narrative 09/14/2018 9:30 AM EDT Abdominal ? (Signed Final 09/14/2018 09:30 am) PATIENT INFO: ID #: ? [id number] ?: ??[birth year] (58 yrs) Name: ? JEFFREY MOSELEY ?Visit Date: 09/14/2018 09:15 am PERFORMED BY: Performed By: ? Thaddeus Chauhan RDMS Attending: ?Melissa NASSAR, Nat Ring Resident: ? Deborah NASSAR, Onofre Gerardo Referred By: ?LOVE MIN Location: ? [place] SERVICE(S) PROVIDED: ??UABDLIM - Abdominal Limited Survey Single ? [id number] ??Organ or Quadrant - [id number] INDICATIONS: ??Cirrhosis, screening for HCC. No history [...] 09/14/2018 09:30 am) PATIENT INFO: ID #: [id number] : 62 (58 yrs) Name: JEFFREY MOSELEY Visit Date: 09/14/2018 09:15 am PERFORMED BY: Performed By: Thaddeus Chauhan RDMS Attending: Nat Torres MD Resident: Onofre Cabrera MD Referred By: LOVE MIN Location: [place] SERVICE(S) PROVIDED: UABDLIM - Abdominal Limited Survey Single [id number] Organ or Quadrant - [id number] INDICATIONS: Cirrhosis, screening for HCC. No history [...] this report, please contact the number below. Nat Torres, Staff Physician Electronically Signed Final Report 09/14/2018 09:30 am Love Min APRN IM US GEN ORDERAB LES documented in this encounter Visit Diagnoses Diagnosis Hepatic cirrhosis, unspecified hepatic cirrhosis type, unspecified whether ascites present documented in this encounter Care Teams Behavior Specialist Relationship Specialty Start Date End Date Angy Ortega APRN [address] [place] [address] PCP - General 01/27/15 01/03/24 documented as of this encounter
--- OUTSIDE RECORDS SUMMARY | 2024-03-25 16:49 | XMS_ITS | Encounter Summary ---
Author Organization [facility] [place] [address] Care Team Providers Care Oil Furnace Installer Name Role Phone Kassi Ortegai ANNEMARIE Primary Care Provider [phone] Encounter Details Date Type Department Care Team (Latest Contact Info) Description 04/07/2017 - 04/07/2017 11:59 PM EDT Hospital Encounter Radiology Library at [facility] [place] [address] Love Porras [facility] [place] [address] Discharge Disposition: Home Social History Tobacco Use [...] 10:00 AM EDT Office Visit Gastroenterology at [facility] [place] [address] Tessie Echavarria SCREEN CLEANER [facility] [place] [address] documented as of this encounter Procedures Procedure Name Priority Date/Time Associated Diagnosis Comments FILM LIBRARY STORAGE ONLY ULTRASOUND STUDY Routine 04/07/2017 12:00 AM EDT documented in this encounter Results * Film Library- Storage Only Ultrasound Study (04/07/2017 12:00 AM EDT) Narrative [facility] - 06/09/2018 12:57 PM EST This exam is for storage only and is auto-finalizing. Love Porras APRN IMG FILM LIBRARY O RDERABLES [place], [place] documented in this encounter Visit Diagnoses Not on filedocumented in this encounter Care Teams Oil Furnace Installer Relationship Specialty Start Date End Date Angy Ortega APRN [address] [place] [address] PCP - General 01/27/15 01/03/24 documented as of this encounter
== END 2024-03-25 16:40 | disposition home or self-care (01) ==
LOC: NCHCN 16:39
PROVIDERS: PCP Family Medicine; Visit Provider Student in an Organized Health Care Education/Training Program
DX: E83.119 Hemochromatosis, unspecified (principal)
CPT/HCPCS: 80053; 82728; 83540; 83550